=== PATIENT | female | born 1970 | race American Indian/Alaskan Native ===

== ENCOUNTER 2016-12-07 14:12 | Emergency (ER) | payer MEDICARE ==
[2016-12-07 14:48] VITALS: BP 136/93
[2016-12-07 15:22] LABS: Hemoglobin 14.3 gm/dl (10.1-14.3); Mean Corpuscular HGB Conc 32 % (30-34); Mean Corpuscular Hemoglobin 28 pg (28-32); Mean Corpuscular Volume 87 fl (79-97); Platelet Count 406 K/mm3 (140-440); Red Blood Count 5.04 M/mm3 (3.65-5.03); Red Cell Distribution Width 14.3 % (13.2-15.2); White Blood Count 14.5 K/mm3 (4.5-11.0)
[2016-12-07 15:40] LABS: Anion Gap 22 mmol/L; BUN/Creatinine Ratio 21.66; Blood Urea Nitrogen 13 mg/dL (7-17); Calcium 9.4 mg/dL (8.4-10.2); Carbon Dioxide 23 mmol/L (22-30); Chloride 100.4 mmol/L (98-107); Glucose 135 mg/dL (65-100); Potassium 4.3 mmol/L (3.6-5.0); Sodium 141 mmol/L (137-145)
[2016-12-07 16:41] LABS: Basophils % (Manual) 0 % (0.0-1.8); Blastocytes % (Manual) 0 %; Eosinophils % (Manual) 0 % (0.0-4.3); Total Cells Counted Percent 0
[2016-12-07 16:42] LABS: Diff Status Complete; Ovalocytes Few; Platelet Estimate Consistent w Auto
--- NOTE | 2016-12-09 01:13 | ED Elopement Review ---
ED Pt Elopement review - Results review Lab results: Laboratory Tests 12/07/16 12/07/16 12/07/16 15:04 15:04 17:28 WBC 14.5 H RBC 5.04 H Hgb 14.3 Hct 44.0 H MCV 87 MCH 28 MCHC 32 RDW 14.3 Plt Count 406 Add Manual Diff Complete Total Counted 100 Seg Neutrophils % Pocket Maker Seg Neuts % (Manual) 94.0 H Band Neutrophils % 0 Lymphocytes % (Manual) 6.0 L Reactive Lymphs % (Man) 0 Monocytes % (Manual) 0 Eosinophils % (Manual) 0 Basophils % (Manual) 0 Metamyelocytes % 0 Myelocytes % 0 Promyelocytes % 0 Blast Cells % 0 Nucleated RBC % Not Reportable Seg Neutrophils # Man 13.6 H Band Neutrophils # 0.0 Lymphocytes # (Manual) 0.9 L Abs React Lymphs (Man) 0.0 Monocytes # (Manual) 0.0 Eosinophils # (Manual) 0.0 Basophils # (Manual) 0.0 Metamyelocytes # 0.0 Myelocytes # 0.0 Promyelocytes # 0.0 Blast Cells # 0.0 WBC Morphology Not Reportable Hypersegmented Neuts Not Reportable Hyposegmented Neuts Not Reportable Hypogranular Neuts Not Reportable Smudge Cells Not Reportable Toxic Granulation Not Reportable Toxic Vacuolation Not Reportable Dohle Bodies Not Reportable Pelger-Huet Anomaly Not Reportable Nabil Rods Not Reportable Platelet Estimate Consistent w auto Clumped Platelets Not Reportable Plt Clumps, EDTA Not Reportable Large Platelets Not Reportable Giant Platelets Not Reportable Platelet Satelliting Not Reportable Plt Morphology Comment Not Reportable RBC Morphology Not Reportable Dimorphic RBCs Not Reportable Polychromasia Not Reportable Hypochromasia Not Reportable Poikilocytosis Not Reportable Anisocytosis Not Reportable Microcytosis Not Reportable Macrocytosis Not Reportable Spherocytes Not Reportable Pappenheimer Bodies Not Reportable Sickle Cells Not Reportable Target Cells Not Reportable Tear Drop Cells Not Reportable Ovalocytes Few Helmet Cells Not Reportable Cavazos-Boring Bodies Not Reportable [place] Rings Not Reportable [place] Cells Not Reportable Bite Cells Not Reportable Crenated Cell Not Reportable Elliptocytes Not Reportable Acanthocytes (Spur) Not Reportable Rouleaux Not Reportable Hemoglobin C Crystals Not Reportable Schistocytes Not Reportable Malaria parasites Not Reportable Barry Bodies Not Reportable Hem Pathologist Commnt No Carbon Dioxide 23 BUN 13 Creatinine 0.6 L Estimated GFR > 60 BUN/Creatinine Ratio 21.66 Glucose 135 H Calcium 9.4 Troponin T < 0.010 < 0.010 - Call Back decision Pt Call Back Decision: Pt to F/U with PMD
== END 2016-12-08 00:05 | disposition left against medical advice (07) ==
LOC: ED 14:12
DX: M25.511 Pain in right shoulder (principal); M54.2 Cervicalgia; R51 Headache; F17.200 Nicotine dependence, unspecified, uncomplicated; Z88.8 Allergy status to other drugs, medicaments and biological substances; Z53.21 Procedure and treatment not carried out due to patient leaving prior to being seen by health care provider
CPT/HCPCS: 36415; 80048; 84484; 85007; 85025; 93005; 93010

== ENCOUNTER 2017-10-03 17:57 | Emergency (ER) | payer MEDICARE ==
[2017-10-03] MEDS ORDERED: ASPIRIN PO ONE (18:12)
[2017-10-03 19:06] LABS: Basophils # (Auto) 0.1 K/mm3 (0.0-0.1); Basophils % (Auto) 0.8 % (0.0-1.8); Eosinophils # (Auto) 0.2 K/mm3 (0.0-0.4); Eosinophils % (Auto) 2.1 % (0.0-4.3); Hematocrit 39.8 % (30.3-42.9); Hemoglobin 13.2 gm/dl (10.1-14.3); Lymphocytes # (Auto) 3.2 K/mm3 (1.2-5.4); Lymphocytes % (Auto) 34.5 % (13.4-35.0); Mean Corpuscular HGB Conc 33 % (30-34); Mean Corpuscular Hemoglobin 29 pg (28-32); Mean Corpuscular Volume 87 fl (79-97); Monocytes # (Auto) 0.7 K/mm3 (0.0-0.8); Platelet Count 318 K/mm3 (140-440); Red Blood Count 4.58 M/mm3 (3.65-5.03)
[2017-10-03 19:37] LABS: BUN/Creatinine Ratio 18; Blood Urea Nitrogen 11 mg/dL (7-17); Calcium 9.6 mg/dL (8.4-10.2); Hemolysis Index 20
--- NOTE | 2017-10-03 23:36 | XRay Report ---
FINAL REPORT PROCEDURE: XR CHEST ROUTINE 2V TECHNIQUE: PA and lateral chest radiographs were obtained. CPT 45192 HISTORY: chest pain COMPARISON: No prior studies are available for comparison. FINDINGS: Heart: Normal. Mediastinum/Vessels: Normal. Lungs/Pleural space: Normal. Bony thorax: No acute osseous abnormality. Other: IMPRESSION: Normal examination.
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
[2017-10-04] MEDS ORDERED: ATIVAN PO ONE (01:02)
[2017-10-04 01:26] LABS: Bacteria,Urine 1+ /HPF (Negative); Bilirubin,Urine NEG (Negative); Blood,Urine SM (Negative); Color,Urine Yellow (Yellow); Mucus,Urine FEW /HPF; Protein,Urine <15 mg/dL mg/dL (Negative); Urobilinogen,Urine < 2.0 mg/dL (<2.0)
[2017-10-04 01:39] VITALS: BP 142/74
== END 2017-10-04 01:30 | disposition home or self-care (01) ==
LOC: ED 17:57
DX: F41.1 Generalized anxiety disorder (principal); R07.89 Other chest pain; I10 Essential (primary) hypertension; M19.90 Unspecified osteoarthritis, unspecified site; J44.9 Chronic obstructive pulmonary disease, unspecified; J45.909 Unspecified asthma, uncomplicated; F17.200 Nicotine dependence, unspecified, uncomplicated; Z90.49 Acquired absence of other specified parts of digestive tract
CPT/HCPCS: 36415; 71046; 80048; 81001; 84484; 85025; 93005; 93010; 99285

== ENCOUNTER 2018-01-12 20:31 | Emergency (ER) | payer MEDICARE ==
[2018-01-12] MEDS ORDERED: ASPIRIN PO ONE (21:08)
[2018-01-12 21:50] LABS: Basophils % (Auto) 0.2 % (0.0-1.8); Eosinophils # (Auto) 0.2 K/mm3 (0.0-0.4); Eosinophils % (Auto) 1.8 % (0.0-4.3); Hematocrit 39.8 % (30.3-42.9); Hemoglobin 12.7 gm/dl (10.1-14.3); Lymphocytes # (Auto) 2.5 K/mm3 (1.2-5.4); Lymphocytes % (Auto) 20.7 % (13.4-35.0); Mean Corpuscular HGB Conc 32 % (30-34); Mean Corpuscular Hemoglobin 28 pg (28-32); Mean Corpuscular Volume 87 fl (79-97); Monocytes # (Auto) 0.9 K/mm3 (0.0-0.8); Monocytes % (Auto) 7.3 % (0.0-7.3); Platelet Count 327 K/mm3 (140-440); Red Blood Count 4.57 M/mm3 (3.65-5.03); Red Cell Distribution Width 14.5 % (13.2-15.2)
[2018-01-12 22:06] LABS: BUN/Creatinine Ratio 4; Blood Urea Nitrogen 3 mg/dL (7-17); Calcium 9.4 mg/dL (8.4-10.2); Hemolysis Index 1
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
[2018-01-13] MEDS ORDERED: FLEXERIL PO ONE (09:40)
[2018-01-13] MEDS ORDERED: ATIVAN PO ONE (09:40)
[2018-01-13 11:56] VITALS: BP 112/64
== END 2018-01-13 11:56 | disposition home or self-care (01) ==
LOC: ED 20:31
DX: F41.9 Anxiety disorder, unspecified (principal); F31.71 Bipolar disorder, in partial remission, most recent episode hypomanic; M54.5 Low back pain; G89.29 Other chronic pain; I10 Essential (primary) hypertension; M19.90 Unspecified osteoarthritis, unspecified site; J44.9 Chronic obstructive pulmonary disease, unspecified; M79.7 Fibromyalgia; F17.200 Nicotine dependence, unspecified, uncomplicated; Z90.49 Acquired absence of other specified parts of digestive tract; Z90.12 Acquired absence of left breast and nipple; Z88.8 Allergy status to other drugs, medicaments and biological substances
CPT/HCPCS: 36415; 80048; 84484; 85025; 93005; 93010; 99284

== ENCOUNTER 2018-07-31 23:29 | Emergency (ER) | payer MEDICARE ==
[2018-08-01] MEDS ORDERED: NACL 0.9% 500 ML 500 ML IV ONE (01:38)
--- NOTE | 2018-08-01 01:39 | Emergency Department Report ---
ED General Adult HPI - General Chief complaint: Dyspnea/Respdistress Stated complaint: SOB SWOLLEN ANKLE PAIN Time Seen by Provider: 08/01/18 01:13 Source: patient, RN notes reviewed, old records reviewed Mode of arrival: Ambulatory Limitations: No Limitations - History of Present Illness Initial comments: This is a 48-year-old female. The patient has a past medical history of major depressive disorder, fibromyalgia, asthma, hypertension, severe chronic back pain, negative nuclear stress test in 2017, multiple back fusions surgeries. Patient recently had spinal surgery at [facility], by Dr. Dylan Braswell. She apparently is now in a back brace, and reports a transabdominal approach, and posterior approach. I do not know what specific surgery she had. However, she is receiving outpatient physical therapy and reports that she is feeling well. She presents to the emergency room today with multiple complaints. Her first complaint is nontraumatic bilateral ankle swelling and slight discoloration. This is present for 1 week. It is constant, and does not radiate anywhere. She reports that there is mild achy discomfort in the bilateral ankles, right greater than left. However there is no calf pain, and there is no Swelling. The patient makes no complaint of shortness of breath to me. The patient endorses a secondary complaint of difficulty with urination. She also endorses dysuria. She reports that she urinated earlier on today, and felt like "I couldn't get all the urine out." She reports no constipation. She reports that she brought these complaints to the attention of her neurosurgeon, spine surgeon, who offered to refer her to an outpatient urologist. She has declined to follow-up as far. She also complains of suprapubic swelling, and discomfort, and states "I think I have a sebaceous cyst." However, she recently had a transabdominal surgical approach for her back surgery. The wound appears to be healing well, and she is doing physical therapy, using a back brace. -: Gradual Location: abdomen, left, right, lower extremity Radiation: non-radiation Severity scale (0 -10): 6 Consistency: constant Improves with: other Worsens with: other - Related Data Home Medications Medication Instructions Recorded Confirmed Last Taken Doxepin [SINEquan] 75 mg PO QHS 11/17/13 04/17/16 11/16/13 21:00 Oxycodone HCl [Oxycodone HCl ER] 30 mg PO BID 04/17/16 04/17/16 Unknown Oxycodone HCl/Acetaminophen 1 each PO Q6HR PRN 04/17/16 04/17/16 Unknown [Percocet 10/325 mg] Ranitidine HCl [Zantac 150 MG TAB] 150 mg PO BID 04/17/16 04/17/16 Unknown Sertraline [Zoloft] 100 mg PO QDAY 04/17/16 04/17/16 Unknown Previous Rx's Medication Instructions Recorded Last Taken Type ALPRAZolam [Xanax TAB] 0.25 mg PO BID PRN #10 tab 10/04/17 Unknown Rx Sulfamethoxazole/Trimethoprim 1 each PO BID #14 tablet 01/13/18 Unknown Rx [Bactrim DS TAB] clonazePAM [Clonazepam] 0.5 mg PO BID #14 tablet 01/13/18 Unknown Rx Ciprofloxacin HCl [Ciprofloxacin 500 mg PO BID 3 Days #6 tablet 04/24/18 Unknown Rx TAB] Doxycycline [Vibramycin] 100 mg PO Q12HR #10 capsule 08/01/18 Unknown Rx Allergies Allergy/AdvReac Type Severity Reaction Status Date / Time aripiprazole [From Abilify] AdvReac Unknown Verified 07/31/18 23:44 pregabalin [From Lyrica] AdvReac Hives Verified 12/07/16 14:53 ED Review of Systems ROS: Stated complaint: SOB SWOLLEN ANKLE PAIN Other details as noted in HPI Constitutional: denies: malaise Eyes: denies: vision change ENT: denies: epistaxis Respiratory: denies: cough, shortness of breath (denies shortness of breath to this provider) Cardiovascular: denies: chest pain Gastrointestinal: abdominal pain Genitourinary: other (urinary hesitancy) Musculoskeletal: arthralgia, myalgia, other (lower extremity swelling) Skin: denies: lesions Neurological: denies: weakness Psychiatric: anxiety ED Past Medical Hx - Past Medical History Previous Medical History?: Yes Hx Hypertension: Yes Hx Arthritis: Yes Hx Psychiatric Treatment: Yes (Anxiety) Hx Asthma: Yes Hx COPD: Yes Additional medical history: sciatica-firbramyalgia. depression. MRSA - Surgical History Past Surgical History?: Yes Hx Appendectomy: Yes Hx Breast Surgery: Yes (duct from left breast removed) Additional Surgical History: hysterectomy. bilateral carpal tunnel release. spinal fusion - Social History Smoking Status: Current Every Day Smoker Substance Use Type: None - Medications Home Medications: Home Medications Medication Instructions Recorded Confirmed Last Taken Type Doxepin [SINEquan] 75 mg PO QHS 11/17/13 04/17/16 11/16/13 21:00 History Oxycodone HCl [Oxycodone HCl ER] 30 mg PO BID 04/17/16 04/17/16 Unknown History Oxycodone HCl/Acetaminophen 1 each PO Q6HR PRN 04/17/16 04/17/16 Unknown History [Percocet 10/325 mg] Ranitidine HCl [Zantac 150 MG TAB] 150 mg PO BID 04/17/16 04/17/16 Unknown History Sertraline [Zoloft] 100 mg PO QDAY 04/17/16 04/17/16 Unknown History ALPRAZolam [Xanax TAB] 0.25 mg PO BID PRN #10 tab 10/04/17 Unknown Rx Sulfamethoxazole/Trimethoprim 1 each PO BID #14 tablet 01/13/18 Unknown Rx [Bactrim DS TAB] clonazePAM [Clonazepam] 0.5 mg PO BID #14 tablet 01/13/18 Unknown Rx Ciprofloxacin HCl [Ciprofloxacin 500 mg PO BID 3 Days #6 tablet 04/24/18 Unknown Rx TAB] Doxycycline [Vibramycin] 100 mg PO Q12HR #10 capsule 08/01/18 Unknown Rx ED Physical Exam - General Limitations: No Limitations General appearance: alert, in no apparent distress - Head Head exam: Present: atraumatic, normocephalic - Eye Eye exam: Present: normal appearance, EOMI. Absent: nystagmus - ENT ENT exam: Present: normal exam, normal orophraynx, mucous membranes moist, normal external ear exam - Neck Neck exam: Present: normal inspection, full ROM. Absent: tenderness, meningismus - Respiratory Respiratory exam: Present: normal lung sounds bilaterally. Absent: respiratory distress - Cardiovascular Cardiovascular Exam: Present: regular rate, normal rhythm, normal heart sounds. Absent: bradycardia, tachycardia, irregular rhythm, systolic murmur, diastolic murmur, rubs, gallop - GI/Abdominal GI/Abdominal exam: Present: soft, other (lower abdominal surgical scar noted, healing well, with no redness, pus or streaking. Chaperoned by ER radiation control specialist Radha Sofia). Absent: distended, tenderness, guarding, rebound, rigid, pulsatile mass - Extremities Exam Extremities exam: Present: normal inspection, full ROM, pedal edema, other (2+ pulses noted in the bilateral upper, lower extremities. Compartments soft. No long bony tenderness. The pelvis is stable.). Absent: calf tenderness - Back Exam Back exam: Present: normal inspection, full ROM, other (midline surgical scar is noted, with no redness, pus or streaking, healing well, no significant tenderness). Absent: tenderness, CVA tenderness (R), paraspinal tenderness, vertebral tenderness - Neurological Exam Neurological exam: Present: alert, oriented X3, CN II-XII intact, other (Extraocular movements intact. Tongue midline. No facial droop. Facial sensation intact to light touch in the V1, V2, V3 distribution bilaterally. 5 and 5 strength in 4 extremities.. Sensation is intact to light touch in 4 extremities.). Absent: motor sensory deficit - Psychiatric Psychiatric exam: Present: normal affect, normal mood - Skin Skin exam: Present: warm, dry, intact, normal color. Absent: rash ED Course Vital Signs 07/31/18 07/31/18 08/01/18 23:37 23:43 01:06 Temperature 98.5 F 98.5 F Pulse Rate 90 90 Respiratory 16 18 18 Rate Blood Pressure 128/62 Blood Pressure 128/62 [Right] O2 Sat by Pulse 97 97 98 Oximetry 08/01/18 08/01/18 01:24 04:22 Temperature Pulse Rate 87 77 Respiratory 17 19 Rate Blood Pressure Blood Pressure 138/71 132/64 [Right] O2 Sat by Pulse 99 98 Oximetry - Reevaluation(s) Reevaluation #1: 08/01/18 02:02 Differential diagnosis, including not limited to: Dependent edema, DVT, Rosie dysfunction, urinary tract infection, postoperative surgical complication, pulmonary embolus Assessment and plan: 48-year-old female with multiple complaints subacutely postoperatively. The patient is afebrile, with reassuring vital signs. She has a benign and essentially unremarkable physical examination. Complaint #1; lower extremity swelling. She reports that her outpatient neurosurgeon has also evaluated this. Not tachycardic, not hypoxic. Negative Homans sign, negative palpable cord. Highly doubt DVT. Patient presented after the vascular lab has closed, so we will order outpatient duplex, DVT study. Complaint #2: Urinary hesitancy. We will obtain urinalysis. Complaint #3: Lower abdominal pressure, discomfort. We will obtain CT scan of the abdomen and pelvis. We will reassess once her data points have resulted. Reevaluation #2: 08/01/18 05:25 Vital signs have remained stable in the emergency room [address] scan of abdomen and pelvis negative for acute disease. Patient walking around the emergency department without difficulty. Urinalysis not consistent with urinary tract infection. CT scan the chest is negative for pulmonary embolus. Dental pneumonia is suggested. Based off of the history and physical, I do not suspect pneumonia at this time clinically. However, given her recent reports of multiple surgeries, we will cover empirically with antibiotics. Patient medically suitable at this point in time to follow up as an outpatient. ED Medical Decision Making - Lab Data Result diagrams: 08/01/18 01:39 08/01/18 01:39 Vital Signs 07/31/18 07/31/18 08/01/18 23:37 23:43 01:24 Temperature 98.5 F 98.5 F Pulse Rate 90 90 87 Respiratory 16 18 17 Rate Blood Pressure 128/62 Blood Pressure 128/62 138/71 [Right] O2 Sat by Pulse 97 97 99 Oximetry - EKG Data -: EKG Interpreted by Pa EKG shows normal: sinus rhythm Rate: normal - EKG Data 08/01/18 05:24 Sinus, 84 bpm, normal axis, normal intervals, atrial enlargement, poor wave progression, low voltage lateral leads, abnormal EKG, not consistent with ST elevation myocardial infarction, appears unchanged from prior EKG from 04/24/2018. - Radiology Data Radiology results: report reviewed, image reviewed Print Report Referring Physician: WILBER TALBERT Patient Name: VERONICA CONRAD Date of : 1970 Sex: Female Report Date: 2018-08-01 Report Status: Finalized Findings [facility] [address] [place] [address] Cat Scan Report Signed Patient: VERONICA CONRAD MR#: [id number] : [birth year] Acct:[id number] Age/Sex: 48 / F ADM Date: 07/31/18 Loc: ED Attending Dr: Ordering Physician: WILBER TALBERT MD Date of Service: 08/01/18 Procedure(s): CT angio chest Accession Number(s): [id number] cc: WILBER TALBERT MD PROCEDURE: CT ANGIO CHEST, CT ABDOMEN PELVIS W CON TECHNIQUE: CT imaging is obtained through the chest and pulmonary angiographic phase and through the abdomen and pelvis in arterial and delayed phases following intravenous administration of contrast. Transaxial, coronal and sagittal reformations with maximal intensity projection are provided. HISTORY: lower ext swelling, recent spine surgery COMPARISONS: Chest radiograph of the same date and 04/24/2018 FINDINGS: Chest: Normal caliber main pulmonary artery. Well opacified pulmonary arterial tree. No pulmonary embolism. No pericardial effusion. Mediastinal calcifications are consistent with sequela of old granulomatous disease. Thoracic aorta is normal in course and caliber. No periaortic fluid or stranding. No pneumothorax or effusion. Scattered areas of groundglass attenuating nodularity and airspace disease in the right and left upper lobes and superior segment of the left lower lung are most confluent in the left lower lung on axial series 2, image 58 and left upper lobe on image 40. The central airways are patent. No bronchiectasis. Abdomen/pelvis: The liver, gallbladder, pancreas, spleen and adrenal glands are unremarkable. Kidneys are normal in size, axis and position. No hydroureteronephrosis or nephrolithiasis. No stones in the urinary bladder or free fluid in the pelvis. Patient is status post hysterectomy. Pelvic phleboliths are noted. The aorta is normal in course and caliber. Normal course of the Hollow enteric organs. Normal appendix. Large colonic stool burden. No pneumoperitoneum, ascites or focal fluid collection to suggest abscess formation. No lymphadenopathy. The superficial soft tissues are remarkable for anterior abdominal wall surgical scarring. Lumbosacral fusion hardware appears intact. There is associated streak artifact. No acute or aggressive appearing skeletal findings. IMPRESSION: No pulmonary embolism. Areas of nodular airspace disease in both upper lungs in the superior segment of the left lower lobe are most suggestive of infection. No acute findings in the abdomen or pelvis. This document is electronically signed by Wilber Haywood MD., August 01 2018 04:46:16 AM ET Transcribed By: MB Dictated By: WILBER HAYWOOD MD Electronically Authenticated By: WILBER HAYWOOD MD Signed Date/Time: 08/01/18 0448 DD/ 0138 TD/TT: 08/01/18 0411 Print Report Referring Physician: WILBER TALBERT Patient Name: VERONICA CONRAD Date of : 1970 Sex: Female Report Date: 2018-08-01 Report Status: Finalized Findings [facility] [address] [place] [address] Cat Scan Report Signed Patient: VERONICA CONRAD MR#: [id number] : 1970 Acct:[id number] Age/Sex: 48 / F ADM Date: 07/31/18 Loc: ED Attending Dr: Ordering Physician: WILBER TALBERT MD Date of Service: 08/01/18 Procedure(s): CT abdomen pelvis w con Accession Number(s): [id number] cc: WILBER TALBERT MD PROCEDURE: CT ANGIO CHEST, CT ABDOMEN PELVIS W CON TECHNIQUE: CT imaging is obtained through the chest and pulmonary angiographic phase and through the abdomen and pelvis in arterial and delayed phases following intravenous administration of contrast. Transaxial, coronal and sagittal reformations with maximal intensity projection are provided. HISTORY: lower ext swelling, recent spine surgery COMPARISONS: Chest radiograph of the same date and 04/24/2018 FINDINGS: Chest: Normal caliber main pulmonary artery. Well opacified pulmonary arterial tree. No pulmonary embolism. No pericardial effusion. Mediastinal calcifications are consistent with sequela of old granulomatous disease. Thoracic aorta is normal in course and caliber. No periaortic fluid or stranding. No pneumothorax or effusion. Scattered areas of groundglass attenuating nodularity and airspace disease in the right and left upper lobes and superior segment of the left lower lung are most confluent in the left lower lung on axial series 2, image 58 and left upper lobe on image 40. The central airways are patent. No bronchiectasis. Abdomen/pelvis: The liver, gallbladder, pancreas, spleen and adrenal glands are unremarkable. Kidneys are normal in size, axis and position. No hydroureteronephrosis or nephrolithiasis. No stones in the urinary bladder or free fluid in the pelvis. Patient is status post hysterectomy. Pelvic phleboliths are noted. The aorta is normal in course and caliber. Normal course of the Hollow enteric organs. Normal appendix. Large colonic stool burden. No pneumoperitoneum, ascites or focal fluid collection to suggest abscess formation. No lymphadenopathy. The superficial soft tissues are remarkable for anterior abdominal wall surgical scarring. Lumbosacral fusion hardware appears intact. There is associated streak artifact. No acute or aggressive appearing skeletal findings. IMPRESSION: No pulmonary embolism. Areas of nodular airspace disease in both upper lungs in the superior segment of the left lower lobe are most suggestive of infection. No acute findings in the abdomen or pelvis. This document is electronically signed by Wilber Haywood MD., August 01 2018 04:46:16 AM ET Transcribed By: TRISTAN Dictated By: WILBER HAYWOOD MD Electronically Authenticated By: WILBER HAYWOOD MD Signed Date/Time: 08/01/18 0448 DD/ 0138 TD/TT: 08/01/18 0411 Critical care attestation.: If time is entered above; I have spent that time in minutes in the direct care of this critically ill patient, excluding procedure time. ED Disposition Clinical Impression: Urinary hesitancy, Swelling of lower extremity, Abdominal wall swelling Disposition: DC-01 TO HOME OR SELFCARE Is pt being admited?: No Does the pt Need Aspirin: No Condition: Stable Additional Instructions: Continue outpatient medications. Follow-up with her spine surgeon as scheduled. Follow up with the primary care doctor within the next month. Follow up with a urology specialist if patient continues to have urinary difficulty within the next month. please call [phone], listen for the prompts and select option 1 to speak to our staff, Available Saturday through Saturday, 7 am to 5 pm PM to assist you. Make certain to bring the ultrasound requisition form with you. Please return to the ER right away with chest pain, shortness of breath, passing out, lightheadedness, shortness of breath, new, worsening or different symptoms. CT scan of the chest suggested possible pneumonia, therefore, take the antibiotics as directed. Do not take metformin for the next 48 hours. Referrals: [facility] [Provider Group] - as needed [facility] [Provider Group] - as needed
--- NOTE | 2018-08-01 02:05 | XRay Report ---
PROCEDURE: XR CHEST 1V AP TECHNIQUE: Chest radiograph single view. HISTORY: Chest Pain COMPARISONS: None . FINDINGS: Heart: Normal. Mediastinum/Vessels: There are calcified nonenlarged mediastinal and left hilar lymph nodes.. Lungs/Pleural space: The lungs are expanded. There are no infiltrates, effusions or pneumothoraces.. Bony thorax: No acute osseous abnormality. Life support devices: None. IMPRESSION: The heart size is normal.. The lungs are expanded. There are no infiltrates, effusions or pneumothoraces.. This document is electronically signed by Can Rice MD., August 01 2018 02:03:04 AM ET
[2018-08-01 02:08] LABS: Basophils % (Auto) 0.5 % (0.0-1.8); Eosinophils # (Auto) 0.1 K/mm3 (0.0-0.4); Eosinophils % (Auto) 1.6 % (0.0-4.3); Hematocrit 34.7 % (30.3-42.9); Hemoglobin 11.2 gm/dl (10.1-14.3); INR 0.96 (0.87-1.13); Lymphocytes % (Auto) 24.6 % (13.4-35.0); Mean Corpuscular HGB Conc 32 % (30-34); Mean Corpuscular Volume 89 fl (79-97); Monocytes # (Auto) 0.7 K/mm3 (0.0-0.8); Partial Thromboplastin Time 28.3 Sec. (24.2-36.6); Platelet Count 364 K/mm3 (140-440); Red Blood Count 3.92 M/mm3 (3.65-5.03); Red Cell Distribution Width 16.2 % (13.2-15.2)
[2018-08-01 02:28] LABS: Alanine Aminotransferase 11 units/L (7-56); Albumin 3.8 g/dL (3.9-5)
[2018-08-01 02:30] LABS: BUN/Creatinine Ratio 14; Blood Urea Nitrogen 10 mg/dL (7-17); Calcium 8.9 mg/dL (8.4-10.2); Hemolysis Index 7
[2018-08-01 03:40] LABS: Bilirubin,Direct < 0.2 mg/dL (0-0.2)
[2018-08-01 04:16] LABS: Bilirubin,Urine NEG (Negative); Blood,Urine NEG (Negative); Color,Urine Yellow (Yellow); Protein,Urine <15 mg/dL mg/dL (Negative); Urobilinogen,Urine < 2.0 mg/dL (<2.0)
--- NOTE | 2018-08-01 04:48 | Cat Scan Report ---
PROCEDURE: CT ANGIO CHEST, CT ABDOMEN PELVIS W CON TECHNIQUE: CT imaging is obtained through the chest and pulmonary angiographic phase and through the abdomen and pelvis in arterial and delayed phases following intravenous administration of contrast. Transaxial, coronal and sagittal reformations with maximal intensity projection are provided. HISTORY: lower ext swelling, recent spine surgery COMPARISONS: Chest radiograph of the same date and 04/24/2018 FINDINGS: Chest: Normal caliber main pulmonary artery. Well opacified pulmonary arterial tree. No pulmonary embolism . No pericardial effusion. Mediastinal calcifications are consistent with sequela of old granulomato us disease. Thoracic aorta is normal in course and caliber. No periaortic fluid or stranding. No pneumothorax or effusion. Scattered areas of groundglass attenuating nodularity and airspace disea se in the right and left upper lobes and superior segment of the left lower lung are most confluent i n the left lower lung on axial series 2, image 58 and left upper lobe on image 40. The central airway s are patent. No bronchiectasis. Abdomen/pelvis: The liver, gallbladder, pancreas, spleen and adrenal glands are unremarkable. Kidneys are normal in size, axis and position. No hydroureteronephrosis or nephrolithiasis. No stones in the urinary bladder or free fluid in the pelvis. Patient is status post hysterectomy. Pelvic phle boliths are noted. The aorta is normal in course and caliber. Normal course of the Hollow enteric organs. Normal appendi x. Large colonic stool burden. No pneumoperitoneum, ascites or focal fluid collection to suggest absc ess formation. No lymphadenopathy. The superficial soft tissues are remarkable for anterior abdominal wall surgical scarring. Lumbosacra l fusion hardware appears intact. There is associated streak artifact. No acute or aggressive appeari ng skeletal findings. IMPRESSION: No pulmonary embolism. Areas of nodular airspace disease in both upper lungs in the superior segment of the left lower lobe are most suggestive of infection. No acute findings in the abdomen or pelvis. This document is electronically signed by Wilber Avila MD., August 01 2018 04:46:16 AM ET
[2018-08-01 05:45] VITALS: BP 145/93
== END 2018-08-01 05:57 | disposition home or self-care (01) ==
LOC: ED 23:29
DX: R39.11 Hesitancy of micturition (principal); M79.89 Other specified soft tissue disorders; M79.7 Fibromyalgia; J45.909 Unspecified asthma, uncomplicated; I10 Essential (primary) hypertension; M54.9 Dorsalgia, unspecified; G89.29 Other chronic pain; F17.200 Nicotine dependence, unspecified, uncomplicated; Z88.8 Allergy status to other drugs, medicaments and biological substances; Z90.49 Acquired absence of other specified parts of digestive tract; Z90.710 Acquired absence of both cervix and uterus
CPT/HCPCS: 36415; 71045; 71275; 74177; 80048; 80076; 81001; 84702; 85025; 85379; 85610; 85730; 93005; 93010; 99285; J7040; Q9967

== ENCOUNTER 2018-11-28 19:07 | Emergency (ER) | payer MEDICARE ==
[2018-11-28 20:14] LABS: Basophils % (Auto) 0.5 % (0.0-1.8); Eosinophils # (Auto) 0.1 K/mm3 (0.0-0.4); Eosinophils % (Auto) 0.9 % (0.0-4.3); Hematocrit 39.3 % (30.3-42.9); Hemoglobin 13.1 gm/dl (10.1-14.3); Lymphocytes # (Auto) 1.7 K/mm3 (1.2-5.4); Lymphocytes % (Auto) 16.4 % (13.4-35.0); Mean Corpuscular HGB Conc 33 % (30-34); Mean Corpuscular Hemoglobin 28 pg (28-32); Mean Corpuscular Volume 84 fl (79-97); Monocytes # (Auto) 0.9 K/mm3 (0.0-0.8); Platelet Count 426 K/mm3 (140-440); Red Blood Count 4.67 M/mm3 (3.65-5.03); Red Cell Distribution Width 17.1 % (13.2-15.2)
[2018-11-28 20:19] LABS: INR 1.17 (0.87-1.13)
[2018-11-28 20:20] LABS: Partial Thromboplastin Time 24.7 Sec. (24.2-36.6)
[2018-11-28 20:28] LABS: BUN/Creatinine Ratio 24; Blood Urea Nitrogen 17 mg/dL (7-17); Calcium 8.9 mg/dL (8.4-10.2); Hemolysis Index 5
[2018-11-28] MEDS ORDERED: TORADOL IM STA (23:29)
--- NOTE | 2018-11-29 00:16 | XRay Report ---
LUMBAR SPINE 3 VIEWS INDICATION: Low back pain after fall. COMPARISON: No relevant prior imaging study available. FINDINGS: VERTEBRAE: No acute fracture. Normal alignment. DISC SPACES: Posterior and interbody fusion of the lumbar spine and SI joints appears unremarkable. T here are mild to moderate discogenic degenerative changes at L3-L4. FACET JOINTS: Generalized facet hypertrophy is present. SOFT TISSUES: No acute findings. Mild aortoiliac atherosclerosis. ADDITIONAL FINDINGS: No additional significant findings. IMPRESSION: No acute findings. Signer Name: Zbigniew Anthony MD Signed: 11/29/2018 12:12 AM Workstation Name: [id number]
[2018-11-29 00:35] LABS: Bacteria,Urine 4+ /HPF (Negative); Bilirubin,Urine NEG (Negative); Blood,Urine SM (Negative); Color,Urine Yellow (Yellow); Mucus,Urine FEW /HPF; Protein,Urine <15 mg/dL mg/dL (Negative); Urobilinogen,Urine < 2.0 mg/dL (<2.0)
--- NOTE | 2018-11-29 01:51 | Emergency Department Report ---
ED Back Pain/Injury HPI - General Chief Complaint: Back Pain/Injury Stated Complaint: BACK PAIN/RIGHT FOOT NUMBNESS Time Seen by Provider: 11/28/18 22:59 Source: patient Limitations: Physical Limitation - History of Present Illness Initial Comments: 48-year-old [place] female with past medical history of chronic back pain of similar department stating in inability to get any relief for her pain as a dull throbbing pain to the lumbar region as well as pressure to the kidney area and suprapubic region Complaint: back pain -: Gradual (chronic pain. Long history of recurrent low back pain) Similar Symptoms Previously: No Place: home Radiation: none Severity: mild Quality: dull Improves With: none Worsens With: none Context: while lifting Associated Symptoms: denies: weakness, chest pain, numbness, incontinence, headaches, abdominal pain, rash, seizure, shortness of breath Treatments Prior to Arrival: cold therapy - Related Data Home Medications Medication Instructions Recorded Confirmed Last Taken Doxepin [SINEquan] 75 mg PO QHS 11/17/13 04/17/16 11/16/13 21:00 Oxycodone HCl [Oxycodone HCl ER] 30 mg PO BID 04/17/16 04/17/16 Unknown Oxycodone HCl/Acetaminophen 1 each PO Q6HR PRN 04/17/16 04/17/16 Unknown [Percocet 10/325 mg] Ranitidine HCl [Zantac 150 MG TAB] 150 mg PO BID 04/17/16 04/17/16 Unknown Sertraline [Zoloft] 100 mg PO QDAY 04/17/16 04/17/16 Unknown Previous Rx's Medication Instructions Recorded Last Taken Type ALPRAZolam [Xanax TAB] 0.25 mg PO BID PRN #10 tab 10/04/17 Unknown Rx Sulfamethoxazole/Trimethoprim 1 each PO BID #14 tablet 01/13/18 Unknown Rx [Bactrim DS TAB] clonazePAM [Clonazepam] 0.5 mg PO BID #14 tablet 01/13/18 Unknown Rx Ciprofloxacin HCl [Ciprofloxacin 500 mg PO BID 3 Days #6 tablet 04/24/18 Unknown Rx TAB] DOXYCYCLINE Hyclate [Vibramycin] 100 mg PO Q12HR #10 capsule 08/01/18 Unknown Rx Ciprofloxacin HCl [Ciprofloxacin 500 mg PO Q12HR #20 tab 07/20/19 Unknown Rx TAB] Ketorolac [Toradol] 10 mg PO Q6H PRN #15 tablet 11/29/18 Unknown Rx methOCARBAMOL [Robaxin] 750 mg PO Q8H PRN #21 tablet 11/29/18 Unknown Rx Allergies Allergy/AdvReac Type Severity Reaction Status Date / Time aripiprazole [From Abilify] AdvReac Unknown Verified 11/28/18 19:21 pregabalin [From Lyrica] AdvReac Hives Verified 11/28/18 19:21 ED Review of Systems ROS: Stated complaint: BACK PAIN/RIGHT FOOT NUMBNESS Other details as noted in HPI Comment: All other systems reviewed and negative Constitutional: denies: chills, fever Eyes: denies: eye pain, eye discharge, vision change ENT: denies: ear pain, throat pain Respiratory: denies: cough, shortness of breath, wheezing Cardiovascular: denies: chest pain, palpitations Endocrine: no symptoms reported Gastrointestinal: denies: abdominal pain, nausea, diarrhea Genitourinary: denies: urgency, dysuria, discharge Musculoskeletal: back pain. denies: joint swelling, arthralgia Skin: denies: rash, lesions Neurological: denies: headache, weakness, paresthesias Psychiatric: denies: anxiety, depression Hematological/Lymphatic: denies: easy bleeding, easy bruising ED Past Medical Hx - Past Medical History Hx Hypertension: Yes Hx Arthritis: Yes Hx Psychiatric Treatment: Yes (Anxiety, depression) Hx Asthma: Yes Hx COPD: Yes Additional medical history: sciatica-firbramyalgia. MRSA - Surgical History Past Surgical History?: Yes Hx Appendectomy: Yes Hx Breast Surgery: Yes (duct from left breast removed) Additional Surgical History: hysterectomy. bilateral carpal tunnel release. spinal fusion - Social History Smoking Status: Current Every Day Smoker Substance Use Type: Alcohol - Medications Home Medications: Home Medications Medication Instructions Recorded Confirmed Last Taken Type Doxepin [SINEquan] 75 mg PO QHS 11/17/13 04/17/16 11/16/13 21:00 History Oxycodone HCl [Oxycodone HCl ER] 30 mg PO BID 04/17/16 04/17/16 Unknown History Oxycodone HCl/Acetaminophen 1 each PO Q6HR PRN 04/17/16 04/17/16 Unknown History [Percocet 10/325 mg] Ranitidine HCl [Zantac 150 MG TAB] 150 mg PO BID 04/17/16 04/17/16 Unknown History Sertraline [Zoloft] 100 mg PO QDAY 04/17/16 04/17/16 Unknown History ALPRAZolam [Xanax TAB] 0.25 mg PO BID PRN #10 tab 10/04/17 Unknown Rx Sulfamethoxazole/Trimethoprim 1 each PO BID #14 tablet 01/13/18 Unknown Rx [Bactrim DS TAB] clonazePAM [Clonazepam] 0.5 mg PO BID #14 tablet 01/13/18 Unknown Rx Ciprofloxacin HCl [Ciprofloxacin 500 mg PO BID 3 Days #6 tablet 04/24/18 Unknown Rx TAB] DOXYCYCLINE Hyclate [Vibramycin] 100 mg PO Q12HR #10 capsule 08/01/18 Unknown Rx Ciprofloxacin HCl [Ciprofloxacin 500 mg PO Q12HR #20 tab 11/29/18 Unknown Rx TAB] Ketorolac [Toradol] 10 mg PO Q6H PRN #15 tablet 11/29/18 Unknown Rx methOCARBAMOL [Robaxin] 750 mg PO Q8H PRN #21 tablet 11/29/18 Unknown Rx ED Physical Exam - General Limitations: Physical Limitation General appearance: alert, in no apparent distress - Head Head exam: Present: atraumatic, normocephalic - Eye Eye exam: Present: normal appearance, PERRL, EOMI. Absent: conjunctival injection, periorbital swelling, periorbital tenderness Pupils: Present: normal accommodation. Absent: irregular, miosis, mydriatic - ENT ENT exam: Present: normal exam, normal orophraynx, mucous membranes moist, TM's normal bilaterally - Neck Neck exam: Present: normal inspection - Respiratory Respiratory exam: Present: normal lung sounds bilaterally. Absent: respiratory distress - Cardiovascular Cardiovascular Exam: Present: regular rate, normal rhythm. Absent: systolic murmur, diastolic murmur, rubs, gallop - GI/Abdominal GI/Abdominal exam: Present: soft, normal bowel sounds - Extremities Exam Extremities exam: Present: normal inspection - Back Exam Back exam: Present: normal inspection, tenderness, paraspinal tenderness, vertebral tenderness. Absent: full ROM, CVA tenderness (R), CVA tenderness (L), muscle spasm, rash noted - Neurological Exam Neurological exam: Present: alert, oriented X3, CN II-XII intact, normal gait - Psychiatric Psychiatric exam: Present: normal affect, normal mood. Absent: anxious, flat affect, suicidal ideation - Skin Skin exam: Present: warm, dry, intact, normal color. Absent: rash, cyanosis, diaphoretic, erythema, petechiae, pallor, ecchymosis ED Course Vital Signs 11/28/18 19:18 Temperature 100.3 F H Pulse Rate 97 H Respiratory 16 Rate Blood Pressure 128/81 O2 Sat by Pulse 100 Oximetry ED Medical Decision Making - Lab Data Result diagrams: 11/28/18 19:51 11/28/18 19:51 Critical care attestation.: If time is entered above; I have spent that time in minutes in the direct care of this critically ill patient, excluding procedure time. ED Disposition Clinical Impression: Lumbago with sciatica, right side, UTI (urinary tract infection) Disposition: - TO HOME OR SELFCARE Is pt being admited?: No Does the pt Need Aspirin: No Condition: Stable Instructions: Lumbar Radiculopathy (ED) Prescriptions: Ciprofloxacin HCl [Ciprofloxacin TAB] 500 mg PO Q12HR #20 tab methOCARBAMOL [Robaxin] 750 mg PO Q8H PRN #21 tablet PRN Reason: Spasms Ketorolac [Toradol] 10 mg PO Q6H PRN #15 tablet PRN Reason: Pain Referrals: NONA LAINEZ MD [Primary Care Provider] - 3-5 Days
[2018-11-29] MEDS ORDERED: TORADOL ONE (02:06)
[2018-11-29] MEDS ORDERED: TORADOL IV ONE (02:16)
[2018-11-29 02:18] VITALS: BP 115/64
== END 2018-11-29 02:18 | disposition home or self-care (01) ==
LOC: ED 19:07
DX: M54.41 Lumbago with sciatica, right side (principal); N39.0 Urinary tract infection, site not specified; I10 Essential (primary) hypertension; F41.9 Anxiety disorder, unspecified; F32.9 Major depressive disorder, single episode, unspecified; J44.9 Chronic obstructive pulmonary disease, unspecified; F17.200 Nicotine dependence, unspecified, uncomplicated; M79.7 Fibromyalgia; G89.29 Other chronic pain; Z88.8 Allergy status to other drugs, medicaments and biological substances; Z79.899 Other long term (current) drug therapy; Z90.49 Acquired absence of other specified parts of digestive tract; Z90.710 Acquired absence of both cervix and uterus
CPT/HCPCS: 36415; 72100; 80048; 81001; 85025; 85610; 85730; 87076; 87086; 87186; 96374; 99284; J1885

== ENCOUNTER 2018-12-09 17:24 | Inpatient (IN) | payer MEDICARE ==
[2018-12-09] MEDS ORDERED: NITRO-BID 2% TP ONE (17:51)
[2018-12-09] MEDS ORDERED: SUBLIMAZE IV ONE (17:51)
[2018-12-09] MEDS ORDERED: ASPIRIN PO ONE (17:51)
[2018-12-09] MEDS ORDERED: ZOFRAN IV ONE (17:51)
--- NOTE | 2018-12-09 17:57 | Emergency Department Report ---
HPI - General Chief Complaint: Chest Pain Time Seen by Provider: 12/09/18 17:42 - HPI HPI: Room 3 The patient is a 48-year-old female presenting with chief complaint of chest pain. The patient states for the past 4 days she's had a cholecystectomy chest pain described as tightness associated with shortness of breath and diaphoresis. Patient denies nausea or vomiting. She states when she developed body aches and a cough occasionally productive of clear sputum with specks of blood. The patient gives her pain a score of 7/10. The patient states her last stress test occurred over 5 years ago and she has never had a cardiac catheterization Location: [See above] Duration: [See above] Quality: [See above] Severity: [See above] Modifying factors: [see above] Context: [see above] Mode of transportation: [not driving] ED Past Medical Hx - Past Medical History Hx Hypertension: Yes Hx Arthritis: Yes Hx Psychiatric Treatment: Yes (Anxiety, depression) Hx Asthma: Yes Hx COPD: Yes Additional medical history: sciatica-firbramyalgia. MRSA - Surgical History Hx Appendectomy: Yes Hx Breast Surgery: Yes (duct from left breast removed) Additional Surgical History: hysterectomy. bilateral carpal tunnel release. spinal fusion - Family History Family history: no significant - Social History Smoking Status: Current Every Day Smoker (1/2 pack per day) Substance Use Type: None (denies illicit drug use), Alcohol (moderate) - Medications Home Medications: Home Medications Medication Instructions Recorded Confirmed Last Taken Type Sertraline [Zoloft] 100 mg PO BID 04/17/16 12/09/18 Unknown History clonazePAM [Clonazepam] 0.5 mg PO BID #14 tablet 01/13/18 12/09/18 Unknown Rx Oxycodone HCl [roxiCODONE] 30 mg PO Q4-6H PRN 12/09/18 12/09/18 12/09/18 History traZODone [Desyrel] 1 - 2 tab PO QHS 12/09/18 12/09/18 Unknown History ED Review of Systems ROS: Stated complaint: CHEST PAIN/ISABELLA Other details as noted in HPI Constitutional: diaphoresis Eyes: denies: eye pain ENT: denies: throat pain Respiratory: cough, shortness of breath Cardiovascular: chest pain Endocrine: no symptoms reported Gastrointestinal: denies: nausea, vomiting Musculoskeletal: denies: back pain Neurological: denies: headache Physical Exam - Physical Exam Physical Exam: GENERAL: The patient is well-developed well-nourished female lying on stretcher not appearing to be in acute distress. [] HEENT: Normocephalic. Atraumatic. Extraocular motions are intact. Patient has moist mucous membranes. NECK: Supple. Trachea midline CHEST/LUNGS: Faint occasional expiratory wheeze. There is no respiratory distress noted. HEART/CARDIOVASCULAR: Regular. There is no tachycardia. There is no gallop rub or murmur. ABDOMEN: Abdomen is soft, nontender. Patient has normal bowel sounds. There is no abdominal distention. SKIN: There is no edema. There is no diaphoresis. NEURO: The patient is awake, alert, and oriented. The patient is cooperative. The patient has normal speech MUSCULOSKELETAL: There is no evidence of acute injury. ED Medical Decision Making - Lab Data Result diagrams: 12/09/18 18:00 12/09/18 18:00 Laboratory Tests 12/09/18 12/09/18 12/09/18 18:00 18:00 18:00 WBC 9.5 RBC 3.82 Hgb 11.2 Hct 32.7 MCV 86 MCH 29 MCHC 34 RDW 15.7 H Plt Count 296 Lymph % (Auto) 16.7 [place] % (Auto) 12.6 H Eos % (Auto) 1.9 Baso % (Auto) 2.1 H Lymph # 1.6 [place] # 1.2 H Eos # 0.2 Baso # 0.2 H Seg Neutrophils % 66.7 Seg Neutrophils # 6.3 D-Dimer 468.49 H Sodium 140 Potassium 4.2 Chloride 100.6 Carbon Dioxide 26 Anion Gap 18 BUN 9 Creatinine 0.4 L Estimated GFR > 60 BUN/Creatinine Ratio 23 Glucose 91 Calcium 8.7 Total Creatine Kinase 250 H CK-MB (CK-2) 2.2 CK-MB (CK-2) Rel Index 0.8 Troponin T NT-Pro-B Natriuret Pep 12/09/18 18:00 WBC RBC Hgb Hct MCV MCH MCHC RDW Plt Count Lymph % (Auto) [place] % (Auto) Eos % (Auto) Baso % (Auto) Lymph # [place] # Eos # Baso # Seg Neutrophils % Seg Neutrophils # D-Dimer Sodium Potassium Chloride Carbon Dioxide Anion Gap BUN Creatinine Estimated GFR BUN/Creatinine Ratio Glucose Calcium Total Creatine Kinase CK-MB (CK-2) CK-MB (CK-2) Rel Index Troponin T < 0.010 NT-Pro-B Natriuret Pep 438.7 - EKG Data -: EKG Interpreted by Me EKG shows normal: sinus rhythm Rate: normal - EKG Data When compared to previous EKG there are: previous EKG unavailable Interpretation: nonspecific ST-T wave agustin (T wave inversion lead 3) - Radiology Data Radiology results: report reviewed (VQ scan), image reviewed (chest x-ray, VQ scan) interpreted by me: Chest x-ray-no focal infiltrate, no pneumothorax [facility] [address] [place] [address] Nuclear Medicine Report Signed Patient: VERONICA CONRAD MR#: [id number] : 1970 Acct:[id number] Age/Sex: 48 / F ADM Date: 12/09/18 Loc: ED Attending Dr: Ordering Physician: JEAN PIERRE RDZ MD Date of Service: 12/09/18 Procedure(s): NM lung scan perf/vent Accession Number(s): [id number] cc: JEAN PIERRE RDZ MD V/Q Scan HISTORY: chest tightness, shortness of breath. TECHNIQUE: Patient was given 4.69 mCi of technetium MAA and 7.89 mCi of xenon- 133. COMPARISON: Chest x-ray from today FINDINGS: There is a single moderately-sized defect in the posterior left lower lobe on the perfusion images which is mismatched from the ventilation images. No other abnormality identified. IMPRESSION: Given single moderately-sized mismatch defect in the left lower lobe with normal- appearing chest x-ray, study is intermediate probability for PTE by using PIOPED criteria. Signer Name: Artemio Castillo MD Signed: 12/09/2018 8:45 PM Workstation Name: [id number] Transcribed By: ADRIANNA Dictated By: Artemio Castillo MD Electronically Authenticated By: Artemio Castillo MD Signed Date/Time: 12/09/182044 DD/ 41 TD/TT: - Differential Diagnosis ACS, pericarditis, GERD, PE Critical care attestation.: If time is entered above; I have spent that time in minutes in the direct care of this critically ill patient, excluding procedure time. ED Disposition Clinical Impression: Chest pain Disposition: 09 OP ADMIT IP TO THIS HOSP Is pt being admited?: Yes Does the pt Need Aspirin: Yes Condition: Fair Instructions: Chest Pain (ED) Time of Disposition: 21:19 (hospitalist paged (Dr Hernandez))
[2018-12-09] MEDS ORDERED: XOPENEX IH ONE (17:58)
[2018-12-09] MEDS ORDERED: ATROVENT IH ONE (17:58)
[2018-12-09 18:25] LABS: Basophils # (Auto) 0.2 K/mm3 (0.0-0.1); Basophils % (Auto) 2.1 % (0.0-1.8); Eosinophils # (Auto) 0.2 K/mm3 (0.0-0.4); Eosinophils % (Auto) 1.9 % (0.0-4.3); Hematocrit 32.7 % (30.3-42.9); Hemoglobin 11.2 gm/dl (10.1-14.3); Lymphocytes # (Auto) 1.6 K/mm3 (1.2-5.4); Lymphocytes % (Auto) 16.7 % (13.4-35.0); Mean Corpuscular HGB Conc 34 % (30-34); Mean Corpuscular Volume 86 fl (79-97); Monocytes # (Auto) 1.2 K/mm3 (0.0-0.8); Monocytes % (Auto) 12.6 % (0.0-7.3); Platelet Count 296 K/mm3 (140-440); Red Blood Count 3.82 M/mm3 (3.65-5.03); Red Cell Distribution Width 15.7 % (13.2-15.2)
--- NOTE | 2018-12-09 18:25 | XRay Report ---
CHEST 1 VIEW 12/09/2018 5:59 PM INDICATION / CLINICAL INFORMATION: chest pain. COMPARISON: Chest x-ray 08/01/2018 FINDINGS: SUPPORT DEVICES: None. HEART / MEDIASTINUM: No significant abnormality. Calcified left perihilar granuloma LUNGS / PLEURA: No significant pulmonary or pleural abnormality. No pneumothorax. ADDITIONAL FINDINGS: No significant additional findings. IMPRESSION: 1. No acute findings. Signer Name: Hitesh Allison MD Signed: 12/09/2018 6:21 PM Workstation Name: [id number]
[2018-12-09 18:58] LABS: Creatine Kinase MB 2.2 ng/mL (0.0-4.0)
[2018-12-09 19:01] LABS: BUN/Creatinine Ratio 23; Blood Urea Nitrogen 9 mg/dL (7-17); Calcium 8.7 mg/dL (8.4-10.2); Hemolysis Index 79
--- NOTE | 2018-12-09 20:49 | Nuclear Medicine Report ---
V/Q Scan HISTORY: chest tightness, shortness of breath. TECHNIQUE: Patient was given 4.69 mCi of technetium MAA and 7.89 mCi of xenon-133. COMPARISON: Chest x-ray from today FINDINGS: There is a single moderately-sized defect in the posterior left lower lobe on the perfusio n images which is mismatched from the ventilation images. No other abnormality identified. IMPRESSION: Given single moderately-sized mismatch defect in the left lower lobe with normal-appeari ng chest x-ray, study is intermediate probability for PTE by using PIOPED criteria. Signer Name: Artemio Castillo MD Signed: 12/09/2018 8:45 PM Workstation Name: [id number]
[2018-12-09] MEDS ORDERED: LOVENOX SUB-Q ONE (21:21)
[2018-12-09] MEDS ORDERED: NITROSTAT SL PRN (21:52)
[2018-12-09] MEDS ORDERED: TYLENOL PO PRN (21:53)
[2018-12-09] MEDS ORDERED: ZOFRAN IV PRN (21:53)
[2018-12-09 23:39] LABS: Hematocrit 34.2 % (30.3-42.9); Hemoglobin 11.1 gm/dl (10.1-14.3)
[2018-12-09 23:42] LABS: INR 1.03 (0.87-1.13)
[2018-12-09 23:43] LABS: Partial Thromboplastin Time 32.3 Sec. (24.2-36.6)
[2018-12-09] MEDS: HEPARIN/ 0.45% NACL-25,000 UNIT/500 ML 25,000 UNIT/500 ML BAG IV SCH (23:51)
[2018-12-10] MEDS ORDERED: DESYREL PO PRN ×2 (00:43→00:59)
[2018-12-10] MEDS: MORPHINE IV PRN ×4 (01:11→22:08)
[2018-12-10] MEDS: DESYREL PO PRN (01:11)
[2018-12-10 01:27] LABS: Creatine Kinase MB 1.7 ng/mL (0.0-4.0)
--- NOTE | 2018-12-10 05:25 | History and Physical Report ---
CHIEF COMPLAINT: Chest pain. HISTORY OF PRESENTING ILLNESS: The patient is a 48-year-old female who says she has been having intermittent chest pain that appears as tightness, going on for about 4 days. The patient said the pain was associated with shortness of breath and diaphoresis, but there is no history of nausea or vomiting and no history of cough. The patient denies history of nausea and vomiting and admitted to having generalized body pain and cough, occasionally productive of sputum stained with some blood streaks. There is no history of fever or chills. The patient denied history of long distance travel, but admitted to having some pain in the lower extremity. PAST MEDICAL HISTORY: Pertinent for hypertension, arthritis, anxiety and depression, asthma, COPD, fibromyalgia, MRSA infection. PAST SURGICAL HISTORY: Pertinent for appendectomy, left breast surgery, bilateral carpal tunnel release surgery, spinal fusion. FAMILY HISTORY: Noncontributory. SOCIAL HISTORY: The patient smokes cigarettes daily, drinks alcohol and does not use illicit drug. MEDICATIONS: The patient is on Zoloft 100 mg by mouth twice daily, clonazepam 0.5 mg by mouth twice daily, Roxicodone 30 mg by mouth every 6 hours as needed for pain, trazodone 1-2 tablets by mouth at bedtime. ALLERGIES: THE PATIENT IS ALLERGIC TO ARIPIPRAZOLE AND PREGABALIN. REVIEW OF SYSTEMS: CONSTITUTIONAL: There is no fever, no chills, no diaphoresis. HEENT: There is no headache or sore throat. CARDIOVASCULAR SYSTEM: Chest pain is present. No orthopnea. RESPIRATORY SYSTEM: Shortness of breath is present. Cough is present. GASTROINTESTINAL SYSTEM: There is no nausea, no vomiting, no abdominal pain, diarrhea or constipation. NEUROLOGICAL SYSTEM: There is no numbness, no dizziness, no altered mental status. MUSCULOSKELETAL: Generalized body pain noted and pain in the lower extremity also noted. No joint swelling. DERMATOLOGICAL SYSTEM: There is no skin rash or itching. GENITOURINARY SYSTEM: There is no dysuria, hematuria, or flank pain. Rest of system review is normal. PHYSICAL EXAMINATION: GENERAL: At the time of exam, the patient was found to be alert, oriented x 3 and not in acute distress. VITAL SIGNS: At the initial time of presentation showed temperature of 98.3 degrees Fahrenheit, pulse of 64, respirations 18, blood pressure 122/61, O2 sat of 99-100% on oxygen. HEENT: Showed pupils to be equal, round, reactive to light and accommodation. Extraocular muscles are intact. NECK: Supple with no JVD or carotid bruit. CARDIOVASCULAR SYSTEM: Showed normal first and second heart sounds, with no gallops or murmurs. RESPIRATORY SYSTEM: Showed reduced air entry on the left side of the lungs, with no abnormal breath sounds. GASTROINTESTINAL SYSTEM: Showed abdomen to be full, soft, nontender, with no organomegaly or rigidity. NEUROLOGICAL: Shows no focal deficit. MUSCULOSKELETAL SYSTEM: Showed no joint swelling or tenderness. DERMATOLOGICAL SYSTEM: Showed no skin rash. GENITOURINARY SYSTEM: Showing no costovertebral angle tenderness. PERTINENT LABORATORY AND IMAGING STUDIES: The patient had pulmonary perfusion scan done that shows a moderately size mismatch defect in the left lower lobe with normal-appearing chest x-ray. Radiology said that the study is indeterminate probability for PE using PIOPED criteria. Also, the patient had a chest x-ray done that showed no acute findings. Lab results, the patient had CBC done with normal white count, normal hemoglobin and normal hematocrit with CBC differential showing elevated monocyte count of 12.6% and elevated basophil count of 2.1%. The patient's coagulation study shows a high D-dimer of 468 that led to perfusion lung scan being done. The patient's chemistry was unremarkable, except for elevated CPK of 250 with normal CK-MB and normal CK percentage index as well as normal troponin level. DIAGNOSES: 1. Left pulmonary embolism. 2. Chest pain. PLAN OF CARE: 1. The patient will be admitted to telemetry as inpatient. 2. The patient will have serial cardiac enzymes involving troponin, total CK, and CK-MB checked every 6 hours x 2 more levels. 3. The patient will be on IV standard heparin drip, having received subcutaneous high dose Lovenox 4. The patient will be on Tylenol 650 mg by mouth every 4 hours for fever and headache and aspirin 81 mg by mouth daily. 5. The patient will be on IV morphine 2 mg every 3 hours as needed for pain and IV Zofran 4 mg every 8 hours for nausea and vomiting. 6. The patient will be on nitro paste 0.5 inch to anterior chest wall q.i.d. 7. The patient will be started on Coumadin 5 mg by mouth daily with pharmacy to dose. 8. The patient will have bilateral Doppler ultrasound of the lower extremity to rule out DVT. 9. The patient will have PT/INR checked in the morning. 10. The patient will be on oxygen by nasal cannula. JOB# [id number] OCN/NTS ROSARIO
[2018-12-10] MEDS: NITRO-BID 2% TP SCH ×4 (06:08→18:53)
[2018-12-10 06:35] LABS: Creatine Kinase MB 1.5 ng/mL (0.0-4.0)
[2018-12-10] MEDS: BABY ASPIRIN PO SCH (09:59)
[2018-12-10] MEDS: ZOLOFT PO SCH ×2 (09:59→22:08)
[2018-12-10] MEDS: COLACE PO SCH ×2 (09:59→22:08)
[2018-12-10] MEDS: LOPRESSOR PO SCH (10:00)
[2018-12-10] MEDS ORDERED: NON-FORMULARY (Oxycodone Hcl [Roxicodone] 30 MG) PO PRN (11:37)
[2018-12-10] MEDS: ROXICODONE PO PRN ×2 (12:29→18:47)
--- NOTE | 2018-12-10 16:19 | Vascular Lab Report ---
DUPLEX DOPPLER LOWER EXTREMITY VEINS, BILATERAL INDICATION: PULMONARY EMBOLISM. Bilateral lower extremity pain and swelling. TECHNIQUE: Duplex doppler imaging was performed through the veins of both lower extremities using ve nous compression and other maneuvers. COMPARISON: No relevant prior imaging study available. FINDINGS: Right Common femoral vein: Negative. Right Superficial femoral vein: Negative. Right Popliteal vein: Negative. Right Calf veins: Negative. Left Common femoral vein: Negative. Left Superficial femoral vein: Negative. Left Popliteal vein: Negative. Left Calf veins: Negative. Additional findings: None.. IMPRESSION: No sonographic evidence for DVT in either lower extremity. Signer Name: Diego Latham Jr, MD Signed: 12/10/2018 4:14 PM Workstation Name: [id number]
[2018-12-10] MEDS ORDERED: COUMADIN PO SCH (17:00)
[2018-12-10] MEDS: COUMADIN PO SCH (17:23)
--- NOTE | 2018-12-10 17:29 | Progress Note ---
Assessment and Plan Assessment and plan: Patient is a 48 yo woman with a history of tobacco dependency, hypertension, anxiety, OA, asthma, fibromyalgia, chronic pain syndrome due to spinal fusion surgery and she takes Oxycodone 6 times a day under the care of pain specialist Dr. Santiago Marshall (according to [place] turning and beading machine operator aware she received #180 oxycodone and #[address] Marshall on 12/04/2018) who presents with chest pains, myalgia, sore throat, subjective fevers and cough. pCXR was unremarkable for pneumonia. She had elevated d-dimer and CTA chest ordered but machine is broken so v/q scan performed and showed Intermediate probability for PE, so she was admitted for suspected LLL acute PE and started on IV heparin drip. -Suspected Acute LLE PE: re-ordered CTA chest to confirm diagnosis, continue IV heparin with Coumadin bridge tonight, Bilateral venous leg dopplers negative -CPS (chronic pain sydrome): continue home narcotics, watch for sedation, add neurochecks -Acute viral bronchitis: supportive care -Tobacco dependency: grief counselor on stopping, offered nicotine patch. DO NOT give narcotics or BZD at discharge Disposition: continue inpatient care, need CTA chest for discharge planning. If negative, she can be discharge without anticoagulation History Interval history: Patient was seen and examined. Follow-up on current diagnosis of PE. No overnight events reported to me. Patient denies any chest pain, shortness breath, nausea/vomiting or severe headaches. Imaging, nursing note, chart, labs and old chart reviewed. Discussed with patient. Hospitalist Physical - Physical exam Narrative exam: Gen: WDWN, NAD, Awake, Alert, Orientated HEENT: NCAT, EOMI, PERRL, OP Clear Neck: supple, no adenopathy, no thyromegaly, no JVD CVS/Heart: RRR, normal S1S2, pulses present bilaterally Chest/Lungs: CTA B, Symmetrical chest expansion, good air entry bilaterally GI/Abdomen: soft, NTND, good bowel sounds, no guarding or rebound /Bladder: no suprapubic tenderness, no CVA or paraspinal tenderness Extermity/Skin: no c/c/e, no obvious rash MSK: FROM x 4 Neuro: CN 2-12 grossly intact, no new focal deficits Psych: calm - Constitutional Vitals: Temp Pulse Resp BP Pulse Ox 98.6 F 60 18 118/56 93 12/10/18 12:08 12/10/18 14:16 12/10/18 12:08 12/10/18 14:16 12/10/18 12:08 Results - Labs CBC & Chem 7: 12/09/18 22:01 12/09/18 18:00 Labs: Laboratory Last Values WBC 9.5 K/mm3 (4.5-11.0) 12/09/18 18:00 RBC 3.82 M/mm3 (3.65-5.03) 12/09/18 18:00 Hgb 11.1 gm/dl (10.1-14.3) 12/09/18 22:01 Hct 34.2 % (30.3-42.9) 12/09/18 22:01 MCV 86 fl (79-97) 12/09/18 18:00 MCH 29 pg (28-32) 12/09/18 18:00 MCHC 34 % (30-34) 12/09/18 18:00 RDW 15.7 % (13.2-15.2) H 12/09/18 18:00 Plt Count 270 K/mm3 (140-440) 12/09/18 22:01 Lymph % (Auto) 16.7 % (13.4-35.0) 12/09/18 18:00 [place] % (Auto) 12.6 % (0.0-7.3) H 12/09/18 18:00 Eos % (Auto) 1.9 % (0.0-4.3) 12/09/18 18:00 Baso % (Auto) 2.1 % (0.0-1.8) H 12/09/18 18:00 Lymph # 1.6 K/mm3 (1.2-5.4) 12/09/18 18:00 [place] # 1.2 K/mm3 (0.0-0.8) H 12/09/18 18:00 Eos # 0.2 K/mm3 (0.0-0.4) 12/09/18 18:00 Baso # 0.2 K/mm3 (0.0-0.1) H 12/09/18 18:00 Seg Neutrophils % 66.7 % (40.0-70.0) 12/09/18 18:00 Seg Neutrophils # 6.3 K/mm3 (1.8-7.7) 12/09/18 18:00 PT 13.2 Sec. (12.2-14.9) 12/09/18 22:01 INR 1.03 (0.87-1.13) 12/09/18 22:01 APTT 32.3 Sec. (24.2-36.6) 12/09/18 22:01 468.49 ng/mlDDU (0-234) H 12/09/18 18:00 Heparin Anti-Xa Level 0.68 U.I./ml (0.3-0.7) 12/10/18 13:12 Sodium 140 mmol/L (137-145) 12/09/18 18:00 Potassium 4.2 mmol/L (3.6-5.0) 12/09/18 18:00 Chloride 100.6 mmol/L (98-107) 12/09/18 18:00 Carbon Dioxide 26 mmol/L (22-30) 12/09/18 18:00 18 mmol/L 12/09/18 18:00 BUN 9 mg/dL (7-17) 12/09/18 18:00 0.4 mg/dL (0.7-1.2) L 12/09/18 18:00 Estimated GFR > 60 ml/min 12/09/18 18:00 23 % 12/09/18 18:00 Glucose 91 mg/dL (65-100) 12/09/18 18:00 Calcium 8.7 mg/dL (8.4-10.2) 12/09/18 18:00 144 units/L (30-135) H 12/10/18 05:47 CK-MB (CK-2) 1.5 ng/mL (0.0-4.0) 12/10/18 05:47 CK-MB (CK-2) Rel Index 1.0 (0-4) 12/10/18 05:47 < 0.010 ng/mL (0.00-0.029) 12/10/18 05:47 NT-Pro-B Natriuret Pep 438.7 pg/mL (0-450) 12/09/18 18:00 Active Medications - Current Medications Current Medications: Generic Name Dose Route Start Last Admin Trade Name Freq PRN Reason Stop Dose Admin Acetaminophen 650 mg 12/09/18 21:53 Tylenol PO Q4H PRN Headache Aspirin 81 mg 12/10/18 10:00 12/10/18 09:59 Baby Aspirin PO 81 mg QDAY [facility] Administration Clonazepam 0.5 mg 12/10/18 10:00 12/10/18 10:01 Klonopin PO 0.5 mg BID SANDRA Administration Docusate Sodium 100 mg 12/10/18 10:00 12/10/18 09:59 Colace PO 100 mg BID SANDRA Administration Heparin Sodium/Sodium Chloride 25,000 unit in 500 mls @ 20 mls/hr 12/09/18 22:00 12/10/18 14:20 Heparin/ 0.45% Nacl-25,000 Unit/500 Ml IV 950 units/hr TITR SANDRA 19 mls/hr Titration Protocol 1,000 UNITS/HR Metoprolol Tartrate 25 mg 12/10/18 10:00 12/10/18 10:00 Lopressor PO 25 mg DAILY [facility] Administration Morphine Sulfate 2 mg 12/09/18 21:53 12/10/18 15:26 Morphine IV 2 mg Q3H PRN Administration Pain, Moderate (4-6) Nitroglycerin 0.5 inch 12/10/18 06:00 12/10/18 14:16 Nitro-Bid 2% TP Not Given QIDNTG [facility] Protocol Nitroglycerin 0.4 mg 12/09/18 21:52 Nitrostat SL .Q5MIN PRN Chest Pain Ondansetron HCl 4 mg 12/09/18 21:53 Zofran IV Q8H PRN Nausea And Vomiting Oxycodone HCl 30 mg 12/10/18 12:00 12/10/18 12:29 Roxicodone PO 30 mg Q4H PRN Administration Pain , Severe (7-10) Sertraline HCl 100 mg 12/10/18 10:00 12/10/18 09:59 Zoloft PO 100 mg BID [facility] Administration Trazodone HCl 50 mg 12/10/18 00:56 12/10/18 01:11 Desyrel PO 50 mg QHS PRN Administration Sleep Trazodone HCl 100 mg 12/10/18 00:59 12/10/18 01:11 Desyrel PO 100 mg QHS PRN Administration Sleep Warfarin Sodium 7.5 mg 12/10/18 17:00 12/10/18 17:23 Coumadin PO 7.5 mg DAILY@1700 SANDRA Administration
[2018-12-11] MEDS: ROXICODONE PO PRN ×3 (00:43→16:59)
[2018-12-11] MEDS: HEPARIN/ 0.45% NACL-25,000 UNIT/500 ML 25,000 UNIT/500 ML BAG IV SCH (00:43)
[2018-12-11] MEDS: DUONEB *Not for PRN Use IH SCH ×4 (02:32→21:20)
[2018-12-11] MEDS: NITRO-BID 2% TP SCH ×2 (06:04→09:36)
[2018-12-11 06:05] LABS: Hematocrit 34.3 % (30.3-42.9); Hemoglobin 11.1 gm/dl (10.1-14.3)
[2018-12-11 06:07] LABS: INR 1.13 (0.87-1.13)
[2018-12-11] MEDS: MORPHINE IV PRN ×3 (06:36→21:07)
[2018-12-11] MEDS: BABY ASPIRIN PO SCH (09:33)
[2018-12-11] MEDS: COLACE PO SCH ×2 (09:33→21:07)
[2018-12-11] MEDS: ZOLOFT PO SCH ×2 (09:33→21:07)
[2018-12-11] MEDS: LOPRESSOR PO SCH (09:37)
--- NOTE | 2018-12-11 16:35 | Cat Scan Report ---
CTA CHEST WITH CONTRAST INDICATION : Shortness of breath. Chest pain for 4 to 5 days TECHNIQUE: Axial imaging performed through the chest, with contrast bolus timing set to maximize opa cification of the pulmonary arteries. Sagittal and coronal reformatted images. 3-plane MIP reformatte d images were obtained. All CT scans at this location are performed using CT dose reduction for ALAR A by means of automated exposure control. 100 mL of intravenous contrast administered. COMPARISON: VQ scan dated 12/09/2018 FINDINGS: Bolus: Contrast bolus timing is adequate. PTE: No filling defect is present to suggest PTE. Mediastinum: Heart and great vessels appear normal. There are multiple calcified lymph nodes in the left hilar region consistent with chronic granulomatous disease. No pathologic adenopathy. Lungs: There is mild air trapping in the upper lobes. Otherwise the lungs are clear. No evidence for consolidation, pleural effusion or pneumothorax. Bones: Degenerative changes in the spine with nothing acute. Upper abdomen: Limited imaging of the upper abdomen shows nothing acute. IMPRESSION: Negative for pulmonary embolus. Chronic granulomatous disease findings. Mild air trapping in the upper lobes suggesting mild obstructive pulmonary disease. Signer Name: Diego Latham Jr, MD Signed: 12/11/2018 4:30 PM Workstation Name: [id number]
--- NOTE | 2018-12-11 16:38 | Progress Note ---
Assessment and Plan Assessment and plan: Patient is a 48 yo woman with a history of tobacco dependency, hypertension, anxiety, OA, asthma, fibromyalgia, chronic pain syndrome due to spinal fusion surgery and she takes Oxycodone 6 times a day under the care of pain specialist Dr. Santiago Marshall (according to [place] credit product analyst aware she received #180 oxycodone and #[address] Marshall on 12/04/2018) who presents with chest pains, myalgia, sore throat, subjective fevers and cough. pCXR was unremarkable for pneumonia. She had elevated d-dimer and CTA chest ordered but machine is broken so v/q scan performed and showed Intermediate probability for PE, so she was admitted for suspected LLL acute PE and started on IV heparin drip. -Suspected Acute LLE PE: re-ordered CTA chest to confirm diagnosis, continue IV heparin with Coumadin bridge tonight, Bilateral venous leg dopplers negative -CPS (chronic pain sydrome): continue home narcotics, watch for sedation, add neurochecks -Acute viral bronchitis: supportive care -Tobacco dependency: patent counsel on stopping, offered nicotine patch. DO NOT give narcotics or BZD at discharge Disposition: continue inpatient care, need CTA chest for discharge planning. If negative, she can be discharge without anticoagulation History Interval history: Patient was seen and examined. Follow-up on current diagnosis of PE. No overnight events reported to me. Patient denies any chest pain, shortness breath, nausea/vomiting or severe headaches. Imaging, nursing note, chart, labs and old chart reviewed. Discussed with patient. Hospitalist Physical - Physical exam Narrative exam: Gen: WDWN, NAD, Awake, Alert, Orientated HEENT: NCAT, EOMI, PERRL, OP Clear Neck: supple, no adenopathy, no thyromegaly, no JVD CVS/Heart: RRR, normal S1S2, pulses present bilaterally Chest/Lungs: CTA B, Symmetrical chest expansion, good air entry bilaterally GI/Abdomen: soft, NTND, good bowel sounds, no guarding or rebound /Bladder: no suprapubic tenderness, no CVA or paraspinal tenderness Extermity/Skin: no c/c/e, no obvious rash MSK: FROM x 4 Neuro: CN 2-12 grossly intact, no new focal deficits Psych: calm - Constitutional Vitals: Temp Pulse Resp BP Pulse Ox 98.3 F 80 18 98/44 97 12/11/18 11:44 12/11/18 15:00 12/11/18 12:28 12/11/18 11:44 12/11/18 10:00 Results - Labs CBC & Chem 7: 12/11/18 05:26 12/09/18 18:00 Labs: Laboratory Last Values WBC 9.5 K/mm3 (4.5-11.0) 12/09/18 18:00 RBC 3.82 M/mm3 (3.65-5.03) 12/09/18 18:00 Hgb 11.1 gm/dl (10.1-14.3) 12/11/18 05:26 Hct 34.3 % (30.3-42.9) 12/11/18 05:26 MCV 86 fl (79-97) 12/09/18 18:00 MCH 29 pg (28-32) 12/09/18 18:00 MCHC 34 % (30-34) 12/09/18 18:00 RDW 15.7 % (13.2-15.2) H 12/09/18 18:00 Plt Count 266 K/mm3 (140-440) 12/11/18 05:26 Lymph % (Auto) 16.7 % (13.4-35.0) 12/09/18 18:00 [place] % (Auto) 12.6 % (0.0-7.3) H 12/09/18 18:00 Eos % (Auto) 1.9 % (0.0-4.3) 12/09/18 18:00 Baso % (Auto) 2.1 % (0.0-1.8) H 12/09/18 18:00 Lymph # 1.6 K/mm3 (1.2-5.4) 12/09/18 18:00 [place] # 1.2 K/mm3 (0.0-0.8) H 12/09/18 18:00 Eos # 0.2 K/mm3 (0.0-0.4) 12/09/18 18:00 Baso # 0.2 K/mm3 (0.0-0.1) H 12/09/18 18:00 Seg Neutrophils % 66.7 % (40.0-70.0) 12/09/18 18:00 Seg Neutrophils # 6.3 K/mm3 (1.8-7.7) 12/09/18 18:00 PT 14.2 Sec. (12.2-14.9) 12/11/18 05:26 INR 1.13 (0.87-1.13) 12/11/18 05:26 APTT 32.3 Sec. (24.2-36.6) 12/09/18 22:01 468.49 ng/mlDDU (0-234) H 12/09/18 18:00 Heparin Anti-Xa Level 0.59 U.I./ml (0.3-0.7) 12/11/18 13:24 Sodium 140 mmol/L (137-145) 12/09/18 18:00 Potassium 4.2 mmol/L (3.6-5.0) 12/09/18 18:00 Chloride 100.6 mmol/L (98-107) 12/09/18 18:00 Carbon Dioxide 26 mmol/L (22-30) 12/09/18 18:00 18 mmol/L 12/09/18 18:00 BUN 9 mg/dL (7-17) 12/09/18 18:00 0.4 mg/dL (0.7-1.2) L 12/09/18 18:00 Estimated GFR > 60 ml/min 12/09/18 18:00 23 % 12/09/18 18:00 Glucose 91 mg/dL (65-100) 12/09/18 18:00 Calcium 8.7 mg/dL (8.4-10.2) 12/09/18 18:00 144 units/L (30-135) H 12/10/18 05:47 CK-MB (CK-2) 1.5 ng/mL (0.0-4.0) 12/10/18 05:47 CK-MB (CK-2) Rel Index 1.0 (0-4) 12/10/18 05:47 < 0.010 ng/mL (0.00-0.029) 12/10/18 05:47 NT-Pro-B Natriuret Pep 438.7 pg/mL (0-450) 12/09/18 18:00 Active Medications - Current Medications Current Medications: Generic Name Dose Route Start Last Admin Trade Name Freq PRN Reason Stop Dose Admin Acetaminophen 650 mg 12/09/18 21:53 Tylenol PO Q4H PRN Headache Albuterol/Ipratropium 1 ampul 12/11/18 08:00 12/11/18 15:11 Duoneb *Not For Prn Use* IH Not Given TIDRT [facility] Aspirin 81 mg 12/10/18 10:00 12/11/18 09:33 Baby Aspirin PO 81 mg QDAY [facility] Administration Clonazepam 0.5 mg 12/10/18 10:00 12/11/18 09:33 Klonopin PO 0.5 mg BID [facility] Administration Docusate Sodium 100 mg 12/10/18 10:00 12/11/18 09:33 Colace PO 100 mg BID [facility] Administration Heparin Sodium/Sodium Chloride 25,000 unit in 500 mls @ 20 mls/hr 12/09/18 22:00 12/11/18 00:43 Heparin/ 0.45% Nacl-25,000 Unit/500 Ml IV 950 units/hr TITR SANDRA 19 mls/hr Administration Protocol 1,000 UNITS/HR Metoprolol Tartrate 25 mg 12/10/18 10:00 12/11/18 09:37 Lopressor PO Not Given DAILY [facility] Morphine Sulfate 2 mg 12/09/18 21:53 12/11/18 09:41 Morphine IV 2 mg Q3H PRN Administration Pain, Moderate (4-6) Nitroglycerin 0.4 mg 12/09/18 21:52 Nitrostat SL .Q5MIN PRN Chest Pain Ondansetron HCl 4 mg 12/09/18 21:53 Zofran IV Q8H PRN Nausea And Vomiting Oxycodone HCl 30 mg 12/10/18 12:00 12/11/18 12:28 Roxicodone PO 30 mg Q4H PRN Administration Pain , Severe (7-10) Sertraline HCl 100 mg 12/10/18 10:00 12/11/18 09:33 Zoloft PO 100 mg BID [facility] Administration Trazodone HCl 50 mg 12/10/18 00:56 12/10/18 01:11 Desyrel PO 50 mg QHS PRN Administration Sleep Trazodone HCl 100 mg 12/10/18 00:59 12/10/18 01:11 Desyrel PO 100 mg QHS PRN Administration Sleep Warfarin Sodium 7.5 mg 12/10/18 17:00 12/10/18 17:23 Coumadin PO 7.5 mg DAILY@1700 SANDRA Administration
[2018-12-11] MEDS: COUMADIN PO SCH (18:56)
[2018-12-12] MEDS: ROXICODONE PO PRN (00:35)
[2018-12-12] MEDS: DESYREL PO PRN (00:37)
[2018-12-12] MEDS ORDERED: PROVENTIL IH PRN (00:57)
[2018-12-12] MEDS: HEPARIN/ 0.45% NACL-25,000 UNIT/500 ML 25,000 UNIT/500 ML BAG IV SCH (02:40)
[2018-12-12 05:43] LABS: INR 1.17 (0.87-1.13)
[2018-12-12] MEDS: MORPHINE IV PRN (05:58)
--- NOTE | 2018-12-12 07:10 | Discharge Summary ---
Providers - Providers Date of Admission: 12/09/18 21:47 Date of discharge: 12/12/18 Attending physician: ARI PINEDA Primary care physician: MANDI MICHEL Hospitalization Condition: Stable Hospital course: Patient is a 48 yo woman with a history of tobacco dependency, hypertension, anxiety, OA, asthma, fibromyalgia, chronic pain syndrome due to spinal fusion surgery and she takes Oxycodone 6 times a day under the care of pain specialist Dr. Santiago Marshall (according to [place] vanstone machine operator aware she received #180 oxycodone and #[address] Marshall on 12/04/2018) who presents with chest pains, myalgia, sore throat, subjective fevers and cough. pCXR was unremarkable for pneumonia. She had elevated d-dimer and CTA chest ordered but machine is broken so v/q scan performed and showed Intermediate probability for PE, so she was admitted for suspected LLL acute PE and started on IV heparin drip. -Ruled out Acute LLE PE: CTA chest negative -Chest pains most likely due to Acute Asthmatic Bronchitis +/- radiographic COPD -CPS (chronic pain sydrome): continue home narcotics, watch for sedation, add neurochecks -Acute viral bronchitis: supportive care -Tobacco dependency: breastfeeding peer counselor on stopping, offered nicotine patch. DO NOT give narcotics or BZD at discharge Disposition: DC-01 TO HOME OR SELFCARE Time spent for discharge: 33 minutes Core Measure Documentation - Palliative Care Palliative Care/ Comfort Measures: Not Applicable - Core Measures Any of the following diagnoses?: none - VTE Discharge Requirements Deep Vein Thrombosis/Pulmonary Embolism Present on Admission: No Has pt received <5 days of overlap therapy or INR<2.0: No Anticoagulant overlap therapy prescribed at discharge: No Contraindication No Overlap Therapy order at DC: Not Indicated Exam - Physical Exam Narrative exam: Gen: WDWN, NAD, Awake, Alert, Orientated HEENT: NCAT, EOMI, PERRL, OP Clear Neck: supple, no adenopathy, no thyromegaly, no JVD CVS/Heart: RRR, normal S1S2, pulses present bilaterally Chest/Lungs: CTA B, Symmetrical chest expansion, good air entry bilaterally GI/Abdomen: soft, NTND, good bowel sounds, no guarding or rebound /Bladder: no suprapubic tenderness, no CVA or paraspinal tenderness Extermity/Skin: no c/c/e, no obvious rash MSK: FROM x 4 Neuro: CN 2-12 grossly intact, no new focal deficits Psych: calm - Constitutional Vitals: Temp Pulse Resp BP Pulse Ox 98.5 F 59 L 20 113/55 98 12/12/18 04:15 12/12/18 05:48 12/12/18 05:58 12/12/18 05:52 12/12/18 05:48 Plan Special Instructions: smoking cessation Durable Medical Equipment Needed Upon Discharge: Nebulizer Follow up with: JAMESON CARLOSRIVERHEAD MD JOAN [Referring] - 3-5 Days NELDA SWEENEY MD [Staff Physician] - 7 Days Prescriptions: methylPREDNISolone [Medrol 4MG DOSEPAK (21 tabs)] 1 dose PO DAILY #1 tab.ds.pk ALBUTEROL Inhaler (OR & NICU) [ProAir HFA Inhaler] 2 puff IH QID PRN #1 inhalation PRN Reason: Shortness Of Breath ALBUTEROL NEB's [Proventil 0.083% NEBS] 2.5 mg IH TID PRN 31 Days #30 neb PRN Reason: Shortness Of Breath Tiotropium [place] [Spiriva Respimat] 4 gm IH DAILY #1 unit Budesonide/Formoterol Fumarate [Symbicort 160-4.5 Mcg Inhaler] 2 puff IH BID #1 hfa.aer.ad Azithromycin [Zithromax Z-ZANE] 1 dose PO DAILY #1 pack
[2018-12-12 07:53] VITALS: BP 126/65
[2018-12-12] MEDS: DUONEB *Not for PRN Use IH SCH (09:48)
== END 2018-12-12 09:59 | disposition home or self-care (01) | DRG 202 ==
LOC: ED 17:24 → 4A 21:47
PROVIDERS: ADMIT Internal Medicine; ATTEND Internal Medicine
DX: J20.8 Acute bronchitis due to other specified organisms (principal); J44.0 Chronic obstructive pulmonary disease with (acute) lower respiratory infection; J45.909 Unspecified asthma, uncomplicated; G89.4 Chronic pain syndrome; I10 Essential (primary) hypertension; F41.9 Anxiety disorder, unspecified; F32.9 Major depressive disorder, single episode, unspecified; F17.210 Nicotine dependence, cigarettes, uncomplicated; Z86.14 Personal history of Methicillin resistant Staphylococcus aureus infection; Z90.49 Acquired absence of other specified parts of digestive tract; Z98.1 Arthrodesis status; Z88.8 Allergy status to other drugs, medicaments and biological substances; Z90.710 Acquired absence of both cervix and uterus; Z71.6 Tobacco abuse counseling
CPT/HCPCS: 36415; 71045; 71275; 78582; 80048; 82550; 82553; 83880; 84484; 85014; 85018; 85025; 85049; 85379; 85520; 85610; 85730; 93005; 93010; 93970; 94640; 94644; 96372; 96374; G0378; A9540; A9558; J1644; J1650; J2270; J2405; J3010; Q9967

== ENCOUNTER 2019-01-14 07:57 | Emergency (ER) | payer MEDICARE ==
[2019-01-14] MEDS ORDERED: TORADOL IV ONE (09:03)
[2019-01-14] MEDS ORDERED: NORCO 5/325 PO ONE (09:03)
--- NOTE | 2019-01-14 09:47 | XRay Report ---
RIGHT WRIST, 3 VIEWS INDICATION: right wrist pain after fall. COMPARISON: None. IMPRESSION: An impacted comminuted fracture is identified in the distal radial metaphysis. No obviou s intra-articular extension at the radiocarpal joint on x-ray. The distal ulna and carpal bones are u nremarkable. There is mild diffuse soft tissue swelling. Signer Name: Diego Latham Jr, MD Signed: 01/14/2019 9:42 AM Workstation Name: [id number]
--- NOTE | 2019-01-14 10:15 | XRay Report ---
RIGHT FOREARM, 2 VIEWS INDICATION: distal and proximal right forearm pain after fall. COMPARISON: None. IMPRESSION: Comminuted, impacted fracture through the distal radial metaphysis is identified. The re mainder of the radius and ulna are intact. The radial head is unremarkable. Mild distal soft tissue s welling is noted. No significant DJD. Signer Name: Diego Latham Jr, MD Signed: 01/14/2019 10:11 AM Workstation Name: [id number]
--- NOTE | 2019-01-14 10:55 | Emergency Department Report ---
ED Upper Extremity Inj HPI - General Chief Complaint: Fall Stated Complaint: FALL/RT WRIST INJURY Time Seen by Provider: 01/14/19 08:29 Source: patient, EMS Mode of arrival: Stretcher Limitations: No Limitations - History of Present Illness Initial Comments: 48-year-old female the past of arthritis, asthma, COPD, hypertension, anxiety, sciatica, and fibromyalgia presents to Hospital complaining of right wrist injury after trip and fall. Ground level fall occurred 2 hours prior to arrival. She fell backwards and injured her right wrist trying to break her fall. Pain to right and this is moderate to severe in intensity, constant, worse with movement and palpation. She is right-hand dominant. Patient reports that she was just discharged 2 days ago after admission to [place]. She states she had fluid drained from the spine that has been present since her back surgery in June. - Related Data Home Medications Medication Instructions Recorded Confirmed Last Taken RX: Sertraline [Zoloft] 100 mg PO BID 04/17/16 12/09/18 Unknown RX: Oxycodone HCl [roxiCODONE] 30 mg PO Q4-6H PRN 12/09/18 12/09/18 12/09/18 RX: traZODone [Desyrel] 1 - 2 tab PO QHS 12/09/18 12/09/18 Unknown RX: Metoprolol [Lopressor TAB] 25 mg PO DAILY 12/10/18 12/10/18 Unknown Previous Rx's Medication Instructions Recorded Last Taken Type RX: clonazePAM [Clonazepam] 0.5 mg PO BID #14 tablet 01/13/18 Unknown Rx Budesonide/Formoterol Fumarate 2 puff IH BID #1 hfa.aer.ad 12/12/18 Unknown Rx [Symbicort 160-4.5 Mcg Inhaler] RX: ALBUTEROL Inhaler (OR & NICU) 2 puff IH QID PRN #1 inhalation 12/12/18 Unknown Rx [ProAir HFA Inhaler] RX: ALBUTEROL NEB's [Proventil 2.5 mg IH TID PRN 31 Days #30 neb 12/12/18 Unknown Rx 0.083% NEBS] RX: Azithromycin [Zithromax Z-ZANE] 1 dose PO DAILY #1 pack 12/12/18 Unknown Rx Tiotropium [place] [Spiriva 4 gm IH DAILY #1 unit 12/12/18 Unknown Rx Respimat] methylPREDNISolone [Medrol 4MG 1 dose PO DAILY #1 tab.ds.pk 12/12/18 Unknown Rx DOSEPAK (21 tabs)] Ibuprofen [Motrin] 600 mg PO Q8H PRN #20 tablet 01/14/19 Unknown Rx Allergies Allergy/AdvReac Type Severity Reaction Status Date / Time aripiprazole [From Abilify] AdvReac Unknown Verified 11/28/18 19:21 pregabalin [From Lyrica] AdvReac Hives Verified 11/28/18 19:21 ED Review of Systems ROS: Stated complaint: FALL/RT WRIST INJURY Other details as noted in HPI Comment: All other systems reviewed and negative ED Past Medical Hx - Past Medical History Hx Hypertension: Yes Hx Arthritis: Yes Hx Psychiatric Treatment: Yes (Anxiety, depression) Hx Asthma: Yes Hx COPD: Yes Additional medical history: sciatica-firbramyalgia. MRSA - Surgical History Hx Appendectomy: Yes Hx Breast Surgery: Yes (duct from left breast removed) Additional Surgical History: hysterectomy. bilateral carpal tunnel release. spinal fusion - Social History Smoking Status: Current Every Day Smoker Substance Use Type: Alcohol - Medications Home Medications: Home Medications Medication Instructions Recorded Confirmed Last Taken Type RX: Sertraline [Zoloft] 100 mg PO BID 04/17/16 12/09/18 Unknown History RX: clonazePAM [Clonazepam] 0.5 mg PO BID #14 tablet 01/13/18 12/09/18 Unknown Rx RX: Oxycodone HCl [roxiCODONE] 30 mg PO Q4-6H PRN 12/09/18 12/09/18 12/09/18 History RX: traZODone [Desyrel] 1 - 2 tab PO QHS 12/09/18 12/09/18 Unknown History RX: Metoprolol [Lopressor TAB] 25 mg PO DAILY 12/10/18 12/10/18 Unknown History Budesonide/Formoterol Fumarate 2 puff IH BID #1 hfa.aer.ad 12/12/18 Unknown Rx [Symbicort 160-4.5 Mcg Inhaler] RX: ALBUTEROL Inhaler (OR & NICU) 2 puff IH QID PRN #1 inhalation 12/12/18 Unknown Rx [ProAir HFA Inhaler] RX: ALBUTEROL NEB's [Proventil 2.5 mg IH TID PRN 31 Days #30 neb 12/12/18 Unknown Rx 0.083% NEBS] RX: Azithromycin [Zithromax Z-ZANE] 1 dose PO DAILY #1 pack 12/12/18 Unknown Rx Tiotropium [place] [Spiriva 4 gm IH DAILY #1 unit 12/12/18 Unknown Rx Respimat] methylPREDNISolone [Medrol 4MG 1 dose PO DAILY #1 tab.ds.pk 12/12/18 Unknown Rx DOSEPAK (21 tabs)] Ibuprofen [Motrin] 600 mg PO Q8H PRN #20 tablet 01/14/19 Unknown Rx ED Physical Exam - General Limitations: No Limitations - Other Other exam information: Normal: No acute distress Head: Atraumatic Eyes: Normal appearance, pupils equally reactive to light, extraocular movements intact ENT: Moist mucous membranes Neck: Normal appearance, no midline cervical tenderness, no meningismus Chest: Clear to auscultation bilaterally, no wheezes, rales, crackles Cardiovascular: Regular rate and rhythm Abdomen: Soft, nontender, nondistended, no rebound or guarding, normal bowel sounds Back: Normal inspection Extremity: Right wrist deformity noted. Tenderness over the distal radius and snuffbox area. Refill less than 2 seconds. 2+ radial pulse. Neuro: Alert and oriented 3, speech normal, no gross motor sensory deficit Psych: Appropriate Skin: No rash ED Course Vital Signs 01/14/19 01/14/19 01/14/19 08:19 08:20 08:22 Temperature 98.1 F 98.1 F Pulse Rate 80 80 Respiratory 20 20 20 Rate Blood Pressure 100/56 Blood Pressure 100/56 [Left] O2 Sat by Pulse 96 96 96 Oximetry ED Medical Decision Making - Radiology Data Radiology results: report reviewed RIGHT WRIST, 3 VIEWS INDICATION: right wrist pain after fall. COMPARISON: None. IMPRESSION: An impacted comminuted fracture is identified in the distal radial metaphysis. No obvious intra-articular extension at the radiocarpal joint on x-ray. The distal ulna and carpal ky luisa are unremarkable. There is mild diffuse soft tissue swelling. RIGHT FOREARM, 2 VIEWS INDICATION: distal and proximal right forearm pain after fall. COMPARISON: None. IMPRESSION: Comminuted, impacted fracture through the distal radial metaphysis is identified. The remainder of the radius and ulna are intact. The radial head is unremarkable. Mild distal soft tissue swelling is noted. No significant DJD. - Medical Decision Making Patient has a comminuted distal right radius fracture. Placed in OCL splint right radial gutter, inspected by me. Sling provided. Patient provided Toradol and [place] in the ED. Will be discharged with orthopedic follow-up [facility] prescription monitoring site reviewed and patient is prescribed oxycodone 30 mg 90 tablets/15 day supply which she filled yesterday. pt drowsy in ed stating she hasnt slept much and she is tired. pt chronically takes high dose narcotics at home. SBP while sleeping is in the mid to high 90's - Differential Diagnosis fracture, contusion, sprain Critical Care Time: No Critical care attestation.: If time is entered above; I have spent that time in minutes in the direct care of this critically ill patient, excluding procedure time. ED Disposition Clinical Impression: Right wrist fracture Disposition: DC-01 TO HOME OR SELFCARE Is pt being admited?: No Does the pt Need Aspirin: No Condition: Stable Instructions: Wrist Fracture in Adults (ED) Additional Instructions: Take your medications as prescribed. Follow-up with your doctor or the clinic/doctor provided. Return if symptoms worsen. Prescriptions: Ibuprofen [Motrin] 600 mg PO Q8H PRN #20 tablet PRN Reason: Pain Referrals: MANDI MICHEL MD [Primary Care Provider] - 3-5 Days GENEVIEVE BARBA MD [Staff Physician] - 3-5 Days (orthopedic doctor ) Time of Disposition: 11:24
[2019-01-14 12:02] VITALS: BP 104/54
== END 2019-01-14 12:03 | disposition home or self-care (01) ==
LOC: ED 07:57
DX: S52.501A Unspecified fracture of the lower end of right radius, initial encounter for closed fracture (principal); I10 Essential (primary) hypertension; M19.90 Unspecified osteoarthritis, unspecified site; F41.9 Anxiety disorder, unspecified; F32.9 Major depressive disorder, single episode, unspecified; J44.9 Chronic obstructive pulmonary disease, unspecified; Z90.49 Acquired absence of other specified parts of digestive tract; Z90.710 Acquired absence of both cervix and uterus; Z79.899 Other long term (current) drug therapy; Z88.8 Allergy status to other drugs, medicaments and biological substances; W01.0XXA Fall on same level from slipping, tripping and stumbling without subsequent striking against object, initial encounter; Y93.89 Activity, other specified; Y92.89 Other specified places as the place of occurrence of the external cause; Y99.8 Other external cause status
CPT/HCPCS: 29125; 73090; 73110; 96374; 99285; J1885

== ENCOUNTER 2019-03-10 19:48 | Emergency (ER) | payer MEDICARE | END 2019-03-10 20:30 | disposition left against medical advice (07) | LOC: ED 19:48 | DX: M54.9 Dorsalgia, unspecified (principal); Z53.21 Procedure and treatment not carried out due to patient leaving prior to being seen by health care provider ==

== ENCOUNTER 2019-07-02 10:22 | Emergency (ER) | payer MEDICARE ==
[2019-07-02] MEDS ORDERED: ASPIRIN 325 MG TAB PO ONE (10:54)
--- NOTE | 2019-07-02 12:28 | XRay Report ---
CHEST 2 VIEWS INDICATION: Chest Pain. COMPARISON: 12/09/2018 FINDINGS: Support devices: None. Heart: Within normal limits. Pulmonary vasculature: Normal. Lungs/pleura: No acute air space or interstitial disease. No pneumothorax. Additional findings: Prominent left mediastinal calcified lymph node and several bilateral small calc ified granulomata. Degenerative change in the spine IMPRESSION: 1. No acute findings. 2. Old granulomatous disease. Signer Name: Ricky Higgins MD Signed: 07/02/2019 12:23 PM Workstation Name: [id number]
[2019-07-02 13:55] LABS: Basophils % (Auto) 0.3 % (0.0-1.8); Eosinophils % (Auto) 0.1 % (0.0-4.3); Hematocrit 48.6 % (30.3-42.9); Hemoglobin 15.8 gm/dl (10.1-14.3); Lymphocytes # (Auto) 1.1 K/mm3 (1.2-5.4); Lymphocytes % (Auto) 8.7 % (13.4-35.0); Mean Corpuscular HGB Conc 33 % (30-34); Mean Corpuscular Volume 86 fl (79-97); Monocytes # (Auto) 0.5 K/mm3 (0.0-0.8); Monocytes % (Auto) 4.1 % (0.0-7.3); Platelet Count 428 K/mm3 (140-440); Red Blood Count 5.68 M/mm3 (3.65-5.03); Red Cell Distribution Width 15.3 % (13.2-15.2)
[2019-07-02 13:57] LABS: BUN/Creatinine Ratio 28; Blood Urea Nitrogen 11 mg/dL (7-17); Calcium 10.1 mg/dL (8.4-10.2); Hemolysis Index 2
[2019-07-02] MEDS ORDERED: MORPHINE 4 MG/1 ML INJ IV ONE (18:35)
[2019-07-02] MEDS ORDERED: ONDANSETRON 4 MG/2 ML INJ IV ONE ×2 (18:35→22:17)
--- NOTE | 2019-07-02 18:51 | Emergency Department Report ---
ED Chest Pain HPI - General Chief Complaint: Chest Pain Stated Complaint: BACK/ABD PAIN Time Seen by Provider: 07/02/19 18:25 Source: patient Mode of arrival: Ambulatory Limitations: No Limitations - History of Present Illness Initial Comments: 49-year-old -[place] female presents to the emergency department with a complaint of a 2 to 3-day history of some lower abdominal pain with radiation to the back that has worsened in the past 24 hours. Today the patient also developed some diarrhea. The patient mentions something about chest pain thr [facility] triage but did not mention that to me as the reason for her visit until she was asked about it. At that point she says that she had some tightness in the chest that "could be my asthma" and she developed a dry cough upon arrival to our emergency department. She has a past medical history of asthma, COPD, hypertension, anxiety, sciatica, fibromyalgia. The patient says she has a history of 2 different lumbar spinal fusions that leaves her with some occasional seromas. Her primary care physician is through [place]. She has not taken anything for symptoms today prior to presentation. Severity scale (0 -10): 6 - Related Data Home Medications Medication Instructions Recorded Confirmed Last Taken Sertraline [Zoloft] 100 mg PO BID 04/17/16 12/09/18 Unknown Oxycodone HCl [roxiCODONE] 30 mg PO Q4-6H PRN 12/09/18 12/09/18 12/09/18 traZODone [Desyrel] 1 - 2 tab PO QHS 12/09/18 12/09/18 Unknown Metoprolol [Lopressor TAB] 25 mg PO DAILY 12/10/18 12/10/18 Unknown Previous Rx's Medication Instructions Recorded Last Taken Type clonazePAM [Clonazepam] 0.5 mg PO BID #14 tablet 01/13/18 Unknown Rx ALBUTEROL NEB's [Proventil 0.083% 2.5 mg IH TID PRN 31 Days #30 neb 12/12/18 Unknown Rx NEBS] Albuterol INH(or & Nicu Only) 2 puff IH QID PRN #1 inhalation 12/12/18 Unknown Rx [ProAir HFA Inhaler] Azithromycin [Zithromax Z-ZANE] 1 dose PO DAILY #1 pack 12/12/18 Unknown Rx Budesonide/Formoterol Fumarate 2 puff IH BID #1 hfa.aer.ad 12/12/18 Unknown Rx [Symbicort 160-4.5 Mcg Inhaler] Tiotropium [place] [Spiriva 4 gm IH DAILY #1 unit 12/12/18 Unknown Rx Respimat] methylPREDNISolone [Medrol 4MG 1 dose PO DAILY #1 tab.ds.pk 12/12/18 Unknown Rx DOSEPAK (21 tabs)] Ibuprofen [Motrin] 600 mg PO Q8H PRN #20 tablet 01/14/19 Unknown Rx Ondansetron [Zofran Odt] 4 mg PO Q8HR PRN #15 tab.rapdis 07/02/19 Unknown Rx Allergies Allergy/AdvReac Type Severity Reaction Status Date / Time aripiprazole [From Abilify] AdvReac Unknown Verified 11/28/18 19:21 pregabalin [From Lyrica] AdvReac Hives Verified 11/28/18 19:21 Heart Score - HEART Score History: Slightly suspicious EKG: Normal Age: 45-65 Risk factors: 1-2 risk factors Troponin: < normal limit HEART Score: 2 - Critical Actions Critical Actions: 0-3 pts:0.9-1.7%risk of adverse cardiac event.Candidate for discharge ED Review of Systems ROS: Stated complaint: BACK/ABD PAIN Other details as noted in HPI Comment: All other systems reviewed and negative Constitutional: denies: chills, fever Eyes: denies: eye pain, vision change ENT: denies: ear pain, throat pain Respiratory: cough, wheezing Cardiovascular: chest pain. denies: edema Gastrointestinal: abdominal pain, diarrhea. denies: vomiting Genitourinary: denies: dysuria, discharge Musculoskeletal: back pain. denies: arthralgia Skin: denies: rash, lesions Neurological: denies: headache, weakness ED Past Medical Hx - Past Medical History Hx Hypertension: Yes Hx Arthritis: Yes Hx Psychiatric Treatment: Yes (Anxiety, depression) Hx Asthma: Yes Hx COPD: Yes Additional medical history: sciatica-firbramyalgia. MRSA - Surgical History Hx Appendectomy: Yes Hx Breast Surgery: Yes (duct from left breast removed) Additional Surgical History: hysterectomy. bilateral carpal tunnel release. spinal fusion - Social History Smoking Status: Never Smoker Substance Use Type: None - Medications Home Medications: Home Medications Medication Instructions Recorded Confirmed Last Taken Type Sertraline [Zoloft] 100 mg PO BID 04/17/16 12/09/18 Unknown History clonazePAM [Clonazepam] 0.5 mg PO BID #14 tablet 01/13/18 12/09/18 Unknown Rx Oxycodone HCl [roxiCODONE] 30 mg PO Q4-6H PRN 12/09/18 12/09/18 12/09/18 History traZODone [Desyrel] 1 - 2 tab PO QHS 12/09/18 12/09/18 Unknown History Metoprolol [Lopressor TAB] 25 mg PO DAILY 12/10/18 12/10/18 Unknown History ALBUTEROL NEB's [Proventil 0.083% 2.5 mg IH TID PRN 31 Days #30 neb 12/12/18 Unknown Rx NEBS] Albuterol INH(or & Nicu Only) 2 puff IH QID PRN #1 inhalation 12/12/18 Unknown Rx [ProAir HFA Inhaler] Azithromycin [Zithromax Z-ZANE] 1 dose PO DAILY #1 pack 12/12/18 Unknown Rx Budesonide/Formoterol Fumarate 2 puff IH BID #1 hfa.aer.ad 12/12/18 Unknown Rx [Symbicort 160-4.5 Mcg Inhaler] Tiotropium [place] [Spiriva 4 gm IH DAILY #1 unit 12/12/18 Unknown Rx Respimat] methylPREDNISolone [Medrol 4MG 1 dose PO DAILY #1 tab.ds.pk 12/12/18 Unknown Rx DOSEPAK (21 tabs)] Ibuprofen [Motrin] 600 mg PO Q8H PRN #20 tablet 01/14/19 Unknown Rx Ondansetron [Zofran Odt] 4 mg PO Q8HR PRN #15 tab.rapdis 07/02/19 Unknown Rx ED Physical Exam - General Limitations: No Limitations - Other Other exam information: GENERAL: The patient is well-developed well-nourished. HENT: Normocephalic. Atraumatic. Patient has moist mucous membranes. EYES: Extraocular motions are intact. NECK: Supple. Trachea is midline. CHEST/LUNGS: Clear to auscultation. There is no respiratory distress noted. HEART/CARDIOVASCULAR: Regular. There is no tachycardia. There is no murmur. ABDOMEN: Abdomen is soft. Lower abdominal tenderness to palpation. No guarding. Patient has normal bowel sounds. There is no abdominal distention. SKIN: Skin is warm and dry. NEURO: The patient is awake, alert, and oriented. The patient is cooperative. The patient has no focal neurologic deficits. Normal speech. MUSCULOSKELETAL: There is no tenderness or deformity. There is no evidence of acute injury. ED Course Vital Signs 07/02/19 07/02/19 07/02/19 10:53 17:18 19:50 Temperature 98.2 F 97.3 F L Pulse Rate 94 H 88 88 Respiratory 18 20 Rate Blood Pressure 140/79 141/78 O2 Sat by Pulse 100 Oximetry 07/02/19 07/02/19 07/02/19 20:00 20:16 20:30 Temperature Pulse Rate 72 73 82 Respiratory 16 9 L 12 Rate Blood Pressure O2 Sat by Pulse 98 100 98 Oximetry 07/02/19 07/02/19 07/02/19 20:46 21:00 21:16 Temperature Pulse Rate 77 71 78 Respiratory 15 11 L 10 L Rate Blood Pressure 134/66 129/74 O2 Sat by Pulse 98 99 100 Oximetry 07/02/19 07/02/19 21:30 21:46 Temperature Pulse Rate 81 77 Respiratory 22 10 L Rate Blood Pressure 114/63 110/80 O2 Sat by Pulse 98 100 Oximetry LAMIN score - Lamin Score Age > 65: (0) No Aspirin use within the Past 7 Days: (0) No 3 or more CAD Risk Factors: (0) No 2 or more Angina events in past 24 hrs: (1) Yes Known CAD with more than 50% Stenosis: (0) No Elevated Cardiac Markers: (0) No ST Deviation Greater than 0.5mm: (0) No LAMIN Score: 1 ED Medical Decision Making - Lab Data Result diagrams: 07/02/19 12:27 07/02/19 12:27 - EKG Data -: EKG Interpreted by Me EKG shows normal: sinus rhythm, axis, intervals, QRS complexes, ST-T waves Rate: normal - EKG Data When compared to previous EKG there are: previous EKG unavailable Interpretation: normal EKG - Radiology Data Radiology results: report reviewed, image reviewed interpreted by me: Chest x-ray does not show any acute process. There are no pleural effusions, obvious pneumonia and there is no pneumothorax. CT ABDOMEN AND PELVIS WITH CONTRAST INDICATION / CLINICAL INFORMATION: lower abd pain. TECHNIQUE: Axial CT images were obtained through the abdomen and pelvis after 100 mL of Omnipaque 350 mg percent IV contrast. All CT scans at this location are performed using CT dose reduction for ALARA by means of automated exposure control. COMPARISON: 08/01/2018 FINDINGS: LOWER CHEST: No significant abnormality. LIVER: No significant abnormality. GALLBLADDER: No significant abnormality. BILE DUCTS: No significant abnormality. PANCREAS: No significant abnormality. SPLEEN: No significant abnormality. ADRENALS: No significant abnormality. RIGHT KIDNEY and URETER: No significant abnormality. LEFT KIDNEY and URETER: No significant abnormality. STOMACH and SMALL BOWEL: No significant abnormality. COLON: No significant abnormality. APPENDIX: No significant abnormality. PERITONEUM: No free fluid. No free air. No fluid collection. LYMPH NODES: No significant adenopathy. AORTA and ARTERIES: No significant abnormality. IVC and VEINS: No significant abnormality. URINARY BLADDER: No significant abnormality. REPRODUCTIVE ORGANS: No significant abnormality. Evidence of previous hysterectomy ADDITIONAL FINDINGS: None. SKELETAL SYSTEM: Extensive orthopedic hardware is present lumbar sacral spine. Artifact from orthopedic hardware noted IMPRESSION: 1. No significant abnormality. - Medical Decision Making This patient presents with a 2 to 3-day history of some lower abdominal pain that radiates around towards her back. She also complains of a 1 day history of some diarrhea. Lastly she has a complaint of some nonspecific chest tightness. Regarding the chest tightness, the patient had an EKG that is normal without ST elevation GA, ischemia or dysrhythmia. Chest x-ray did not show any acute process. Her unremarkable labs included negative troponins x3. Patient has a low heart and LAMIN score. For these reasons, the patient's contact information has been sent to [facility] cardiology and someone from their office will be contacting her shortly for close outpatient follow-up. She has been instructed to return to the emergency department with any return of her chest pain. Regarding the patient's abdominal pain, a CT scan of the abdomen pelvis with IV contrast was completed that did not show any acute abdominal or pelvic process. She has some slight tenderness to palpation in the lower abdominal regions but the abdomen is soft, nondistended and nontoxic in appearance. Her labs were unremarkable including CBC and metabolic panel and urinalysis. The patient was given some analgesia with improvement of her discomfort. She will be discharged home with a referral for gastroenterology. Overall the patient has been instructed to return to the emergency department with any worsening of her symptoms or with any acute distress. - Differential Diagnosis Appendicitis, colitis, diverticulitis, bowel obstruction Critical Care Time: No Critical care attestation.: If time is entered above; I have spent that time in minutes in the direct care of this critically ill patient, excluding procedure time. ED Disposition Clinical Impression: Chest pain Qualifiers: Chest pain type: unspecified Qualified Code(s): R07.9 - Chest pain, unspecified Abdominal pain Qualifiers: Abdominal location: unspecified location Qualified Code(s): R10.9 - Unspecified abdominal pain Disposition: TO HOME OR SELFCARE Is pt being admited?: No Condition: Stable Instructions: Chest Pain (ED), Abdominal Pain (ED) Additional Instructions: Please follow-up with your primary care physician and pain management physician in the next few days. I have sent your contact information over to [facility] cardiology and someone should be contacting you shortly for close outpatient follow-up regarding your chest pains. I am also giving you a ref erral for [facility]ology regarding your abdominal pain. Return to the emergency department with any worsening of your symptoms or any acute distress. Prescriptions: Ondansetron [Zofran Odt] 4 mg PO Q8HR PRN #15 tab.rapdis PRN Reason: Nausea Referrals: PRIMARY CARE,MD [Primary Care Provider] - 2-3 Days [facility] [Provider Group] - 2-3 Days [facility] [Provider Group] - 2-3 Days Time of Disposition: 21:48
--- NOTE | 2019-07-02 19:55 | Cat Scan Report ---
CT ABDOMEN AND PELVIS WITH CONTRAST INDICATION / CLINICAL INFORMATION: lower abd pain. TECHNIQUE: Axial CT images were obtained through the abdomen and pelvis after 100 mL of Omnipaque 350 mg percent IV contrast. All CT scans at this location are performed using CT dose reduction for ALARA by means of automated exposure control. COMPARISON: 08/01/2018 FINDINGS: LOWER CHEST: No significant abnormality. LIVER: No significant abnormality. GALLBLADDER: No significant abnormality. BILE DUCTS: No significant abnormality. PANCREAS: No significant abnormality. SPLEEN: No significant abnormality. ADRENALS: No significant abnormality. RIGHT KIDNEY and URETER: No significant abnormality. LEFT KIDNEY and URETER: No significant abnormality. STOMACH and SMALL BOWEL: No significant abnormality. COLON: No significant abnormality. APPENDIX: No significant abnormality. PERITONEUM: No free fluid. No free air. No fluid collection. LYMPH NODES: No significant adenopathy. AORTA and ARTERIES: No significant abnormality. IVC and VEINS: No significant abnormality. URINARY BLADDER: No significant abnormality. REPRODUCTIVE ORGANS: No significant abnormality. Evidence of previous hysterectomy ADDITIONAL FINDINGS: None. SKELETAL SYSTEM: Extensive orthopedic hardware is present lumbar sacral spine. Artifact from orthopedic hardware noted IMPRESSION: 1. No significant abnormality. Signer Name: Marcio Panchal MD Signed: 07/02/2019 7:50 PM Workstation Name: [id number]
[2019-07-02 19:59] LABS: Alanine Aminotransferase 21 units/L (7-56); Albumin 4.5 g/dL (3.9-5)
[2019-07-02 20:03] LABS: Bilirubin,Direct < 0.2 mg/dL (0-0.2)
[2019-07-02 20:10] LABS: Bilirubin,Urine NEG (Negative); Blood,Urine NEG (Negative); Color,Urine Yellow (Yellow); Mucus,Urine FEW /HPF; Protein,Urine <15 mg/dL mg/dL (Negative)
[2019-07-02] MEDS ORDERED: HYDROmorphone 1 MG/1 ML INJ IV ONE (20:21)
[2019-07-02 21:54] VITALS: BP 110/80
== END 2019-07-02 22:35 | disposition home or self-care (01) ==
LOC: ED 10:22
DX: R07.89 Other chest pain (principal); R10.30 Lower abdominal pain, unspecified; M54.5 Low back pain; R05 Cough; I10 Essential (primary) hypertension; J44.9 Chronic obstructive pulmonary disease, unspecified; M19.90 Unspecified osteoarthritis, unspecified site; F41.9 Anxiety disorder, unspecified; F32.9 Major depressive disorder, single episode, unspecified; Z88.8 Allergy status to other drugs, medicaments and biological substances; Z79.899 Other long term (current) drug therapy; Z90.710 Acquired absence of both cervix and uterus; Z98.890 Other specified postprocedural states
CPT/HCPCS: 36415; 71046; 74177; 80048; 80076; 81001; 83690; 84484; 85025; 93005; 93010; 96374; 96375; 96376; 99285; J1170; J2270; J2405; Q9967

== ENCOUNTER 2019-07-28 17:34 | Emergency (ER) | payer MEDICARE ==
[2019-07-28 17:42] VITALS: BP 144/83
--- NOTE | 2019-07-28 17:54 | Emergency Department Report ---
Blank Doc - Documentation Documentation: 49-year-old female that presents with right flank pain and nausea with SOB and cough. HX of COPD. This initial assessment/diagnostic orders/clinical plan/treatment(s) is/are subject to change based on patient's health status, clinical progression and re- assessment by fellow clinical providers in the ED. Further treatment and workup at subsequent clinical providers discretion. Patient/guardians urged not to elope from the ED as their condition may be serious if not clinically assessed and managed. Initial orders include: 1- Patient sent to [facility] for further evaluation and treatment 2- CXR 3- UA
--- NOTE | 2019-07-28 18:30 | XRay Report ---
CHEST 2 VIEWS INDICATION: cough/sob. COMPARISON: 07/02/2019 FINDINGS: Support devices: None. Heart: Within normal limits. Lungs/Pleura: No acute air space or interstitial disease. Prior granulomatous exposure. No significan t pleural effusion. IMPRESSION: No acute findings. Signer Name: Jay Arenas MD Signed: 07/28/2019 6:26 PM Workstation Name: [id number]
== END 2019-07-28 19:45 | disposition left against medical advice (07) ==
LOC: ED 17:34
DX: M54.89 Other dorsalgia (principal); Z53.21 Procedure and treatment not carried out due to patient leaving prior to being seen by health care provider
CPT/HCPCS: 71046

== ENCOUNTER 2019-10-31 21:05 | Emergency (ER) | payer MEDICARE ==
[2019-10-31 21:31] VITALS: BP 140/83
[2019-10-31] MEDS ORDERED: ALBUTEROL 2.5 MG/3 ML NEBU IH ONE (22:43)
[2019-10-31] MEDS ORDERED: dexAMETHasone 20 MG/5 ML VIAL IM ONE (22:43)
[2019-10-31] MEDS ORDERED: IPRATROPIUM 0.02% NEBU 2.5 ML IH ONE (22:43)
--- NOTE | 2019-10-31 22:46 | Emergency Department Report ---
ED General Adult HPI - General Chief complaint: Skin Rash Stated complaint: SHINGLES/FEVER/COUGH Time Seen by Provider: 10/31/19 22:42 Source: patient Mode of arrival: Ambulatory Limitations: No Limitations - History of Present Illness Initial comments: 49-year-old -[place] female presents to the emergency room complaint of upper body rash that itches, body aches, headache that started today. Patient states that she has talked to her primary care doctor and he instructed her to come to the ER for evaluation for shingles. Patient denies any new soaps close detergents or perfumes. Patient does admit to nasal congestion no runny eyes no runny nose. She does admit to low-grade fever about 100.0. She reports that she has been having shortness of breath and use her inhaler. Patient states that she is is in pain management and she has been taking her Roxicodone 30 mg 4 times daily without much relief of the body aches. -: This afternoon Location: chest Radiation: non-radiation Severity scale (0 -10): 0 Quality: other (Itching) Consistency: constant Improves with: none Worsens with: none Associated Symptoms: cough, headaches, shortness of breath, weakness. denies: nausea/vomiting - Related Data Home Medications Medication Instructions Recorded Confirmed Last Taken Sertraline [Zoloft] 100 mg PO DAILY 04/17/16 12/09/18 Unknown Oxycodone HCl [roxiCODONE] 30 mg PO Q4-6H PRN 12/09/18 08/20/19 12/09/18 traZODone [Desyrel] 1 - 2 tab PO QHS 12/09/18 08/20/19 Unknown Metoprolol [Lopressor TAB] 25 mg PO DAILY 12/10/18 08/20/19 Unknown Baclofen [Lioresal] 1 tab PO QID PRN 08/20/19 08/20/19 Unknown buPROPion XL [Wellbutrin XL] 150 mg PO QAM 08/20/19 08/20/19 Unknown Previous Rx's Medication Instructions Recorded Last Taken Type clonazePAM [Clonazepam] 0.5 mg PO BID #14 tablet 01/13/18 Unknown Rx Budesonide/Formoterol Fumarate 2 puff IH BID #1 hfa.aer.ad 12/12/18 Unknown Rx [Symbicort 160-4.5 Mcg Inhaler] cefUROXime [Ceftin] 2 tab PO Q12H #20 tablet 08/20/19 Unknown Rx Albuterol INH(or & Nicu Only) 2 puff IH QID PRN #1 inhalation 10/07/19 Unknown Rx [ProAir HFA Inhaler] Allergies Allergy/AdvReac Type Severity Reaction Status Date / Time aripiprazole [From Abilify] AdvReac Unknown Verified 11/28/18 19:21 pregabalin [From Lyrica] AdvReac Hives Verified 11/28/18 19:21 ED Review of Systems ROS: Stated complaint: SHINGLES/FEVER/COUGH Other details as noted in HPI Comment: All other systems reviewed and negative ED Past Medical Hx - Past Medical History Previous Medical History?: Yes Hx Hypertension: Yes Hx Arthritis: Yes Hx Psychiatric Treatment: Yes (Anxiety, depression) Hx Asthma: Yes Hx COPD: Yes Additional medical history: Fibromyalgia. MRSA - Surgical History Past Surgical History?: Yes Hx Appendectomy: Yes Hx Breast Surgery: Yes (duct from left breast removed) Additional Surgical History: hysterectomy. bilateral carpal tunnel release. spinal fusion - Social History Smoking Status: Current Every Day Smoker Substance Use Type: None - Medications Home Medications: Home Medications Medication Instructions Recorded Confirmed Last Taken Type Sertraline [Zoloft] 100 mg PO DAILY 04/17/16 12/09/18 Unknown History clonazePAM [Clonazepam] 0.5 mg PO BID #14 tablet 01/13/18 08/20/19 Unknown Rx Oxycodone HCl [roxiCODONE] 30 mg PO Q4-6H PRN 12/09/18 08/20/19 12/09/18 History traZODone [Desyrel] 1 - 2 tab PO QHS 12/09/18 08/20/19 Unknown History Metoprolol [Lopressor TAB] 25 mg PO DAILY 12/10/18 08/20/19 Unknown History Budesonide/Formoterol Fumarate 2 puff IH BID #1 hfa.aer.ad 12/12/18 08/20/19 Unknown Rx [Symbicort 160-4.5 Mcg Inhaler] Baclofen [Lioresal] 1 tab PO QID PRN 08/20/19 08/20/19 Unknown History buPROPion XL [Wellbutrin XL] 150 mg PO QAM 08/20/19 08/20/19 Unknown History cefUROXime [Ceftin] 2 tab PO Q12H #20 tablet 08/20/19 Unknown Rx Albuterol INH(or & Nicu Only) 2 puff IH QID PRN #1 inhalation 10/07/19 Unknown Rx [ProAir HFA Inhaler] ED Physical Exam - General Limitations: No Limitations General appearance: alert, in no apparent distress - Head Head exam: Present: atraumatic, normocephalic - Eye Eye exam: Present: normal appearance - ENT ENT exam: Present: mucous membranes moist - Neck Neck exam: Present: normal inspection, full ROM - Respiratory Respiratory exam: Present: wheezes, rhonchi - Cardiovascular Cardiovascular Exam: Present: tachycardia - GI/Abdominal GI/Abdominal exam: Present: soft, normal bowel sounds - Extremities Exam Extremities exam: Present: full ROM - Back Exam Back exam: Present: normal inspection, full ROM - Neurological Exam Neurological exam: Present: alert, oriented X3 - Psychiatric Psychiatric exam: Present: normal affect, normal mood - Skin Skin exam: Present: rash ED Course Vital Signs 10/31/19 21:27 Temperature 98.8 F Pulse Rate 106 H Respiratory 18 Rate Blood Pressure 140/83 O2 Sat by Pulse 97 Oximetry ED Medical Decision Making - Lab Data Result diagrams: 10/31/19 23:07 10/31/19 23:07 Laboratory Tests 10/31/19 10/31/19 23:07 23:07 WBC 9.7 RBC 4.19 Hgb 12.3 Hct 36.7 MCV 88 MCH 29 MCHC 34 RDW 13.9 Plt Count 281 Lymph % (Auto) 25.3 [place] % (Auto) 9.8 H Eos % (Auto) 3.8 Baso % (Auto) 0.4 Lymph # 2.5 [place] # 1.0 H Eos # 0.4 Baso # 0.0 Seg Neutrophils % 60.7 Seg Neutrophils # 5.9 Sodium 138 Potassium 4.1 Chloride 100.8 Carbon Dioxide 24 Anion Gap 17 BUN 18 H Creatinine 0.7 Estimated GFR > 60 BUN/Creatinine Ratio 26 Glucose 126 H Calcium 9.1 Total Bilirubin 0.20 AST 27 ALT 22 Alkaline Phosphatase 74 Total Protein 7.2 Albumin 4.0 Albumin/Globulin Ratio 1.3 - Radiology Data Radiology results: report reviewed Patient Name: VERONICA CONRAD Gender: Female Date of : 1970 Referring Provider: VALDEMAR OLIVIA Organization: [facility] Accession Number: [id number] Requested Date: October 31, 2019 22:43 Report Status: Final Requested Procedure: 1 Procedure Description: XR chest routine 2V Modality: XR Findings Reporting MD: Flakito Mclean Dictation Time: October 31, 2019 22:08 [place]: Not available 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 COMPARISON: 10/07/2019 FINDINGS: Support devices: None Heart: Normal and unchanged Lungs/Pleura: No acute disease. Calcified superior left hilar node. IMPRESSION: 1. No active disease. Signer Name: Flakito Mclean MD Signed: 10/31/2019 10:08 PM Workstation Name: [id number] - Medical Decision Making 49-year-old -[place] female presents to the emergency room complaint of upper body rash that itches, body aches, headache that started today. Patient states that she has talked to her primary care doctor and he instructed her to come to the ER for evaluation for shingles. Patient denies any new soaps close detergents or perfumes. Patient does admit to nasal congestion no runny eyes no runny nose. She does admit to low-grade fever about 100.0. She reports that she has been having shortness of breath and use her inhaler. Patient states that she is is in pain management and she has been taking her Roxicodone 30 mg 4 times daily without much relief of the body aches. CBC, CMP, chest x-ray has been ordered. Chest x-ray is negative for any acute findings, CBC CMP are negative. You do not have shingles. You should follow-up with your primary care provider for further evaluation. Critical care attestation.: If time is entered above; I have spent that time in minutes in the direct care of this critically ill patient, excluding procedure time. ED Disposition Clinical Impression: Fibromyalgia, Bipolar disorder, Rash and nonspecific skin eruption Disposition: DC-01 TO HOME OR SELFCARE Is pt being admited?: No Does the pt Need Aspirin: No Condition: Stable Additional Instructions: Chest x-ray is negative for any acute findings, labs are negative. You do not have shingles. You should follow-up with your primary care provider for further evaluation. Referrals: PRIMARY CARE, [Primary Care Provider] - 3-5 Days Forms: Work/School Release Form(ED)
--- NOTE | 2019-10-31 23:12 | XRay Report ---
CHEST PA AND LATERAL VIEWS INDICATION: Shortness of breath wheezing rhonchus. COMPARISON: 10/07/2019 FINDINGS: Support devices: None Heart: Normal and unchanged Lungs/Pleura: No acute disease. Calcified superior left hilar node. IMPRESSION: 1. No active disease. Signer Name: Flakito Mclean MD Signed: 10/31/2019 11:08 PM Workstation Name: [email or web address]
[2019-10-31 23:32] LABS: Basophils % (Auto) 0.4 % (0.0-1.8); Eosinophils # (Auto) 0.4 K/mm3 (0.0-0.4); Eosinophils % (Auto) 3.8 % (0.0-4.3); Hematocrit 36.7 % (30.3-42.9); Hemoglobin 12.3 gm/dl (10.1-14.3); Lymphocytes # (Auto) 2.5 K/mm3 (1.2-5.4); Lymphocytes % (Auto) 25.3 % (13.4-35.0); Mean Corpuscular HGB Conc 34 % (30-34); Mean Corpuscular Volume 88 fl (79-97); Monocytes % (Auto) 9.8 % (0.0-7.3); Platelet Count 281 K/mm3 (140-440); Red Blood Count 4.19 M/mm3 (3.65-5.03); Red Cell Distribution Width 13.9 % (13.2-15.2)
[2019-10-31 23:53] LABS: Alanine Aminotransferase 22 units/L (7-56); BUN/Creatinine Ratio 26; Blood Urea Nitrogen 18 mg/dL (7-17); Calcium 9.1 mg/dL (8.4-10.2); Hemolysis Index 15
== END 2019-11-01 00:15 | disposition home or self-care (01) ==
LOC: ED 21:05
DX: M79.7 Fibromyalgia (principal); R21 Rash and other nonspecific skin eruption; F31.9 Bipolar disorder, unspecified; R51 Headache; I10 Essential (primary) hypertension; M19.91 Primary osteoarthritis, unspecified site; J44.9 Chronic obstructive pulmonary disease, unspecified; F17.200 Nicotine dependence, unspecified, uncomplicated; Z90.49 Acquired absence of other specified parts of digestive tract; Z98.890 Other specified postprocedural states; Z79.899 Other long term (current) drug therapy; Z88.8 Allergy status to other drugs, medicaments and biological substances
CPT/HCPCS: 36415; 71046; 80053; 85025; 94640; 96372; 99284; J1100

== ENCOUNTER 2019-11-20 13:22 | Emergency (ER) | payer MEDICARE ==
--- NOTE | 2019-11-20 14:25 | Event Note ---
ED Screening Note ED Screening Note: ETOH use last night states fell on the way to the bathroom c/o headache and facial pain and left shoulder pain no LOC, no vomiting, no numbness, no weakness, no bowel or bladder incontinence pt is on narcotics for chronic pain This initial assessment/diagnostic orders/clinical plan/treatment(s) is/are subject to change based on patients health status, clinical progression and re- assessment by fellow clinical providers in the ED. Further treatment and workup at subsequent clinical providers discretion. Patient/guardian urged not to elope from the ED as their condition may be serious if not clinically assessed and managed. Initial orders include: labs imaging
--- NOTE | 2019-11-20 15:12 | Cat Scan Report ---
CT HEAD WITHOUT CONTRAST INDICATION / CLINICAL INFORMATION: Trauma. Patient fell sustaining head injury. TECHNIQUE: All CT scans at this location are performed using CT dose reduction for ALARA by means of automated e xposure control. COMPARISON: None available. FINDINGS: HEMORRHAGE: No evidence of intracranial hemorrhage or extra-axial fluid collection. EXTRA-AXIAL SPACES: Cortical sulci, sylvian fissures and basilar cisterns have an unremarkable appear ance. VENTRICULAR SYSTEM: The ventricular system is of normal size and configuration. CEREBRAL PARENCHYMA: No areas of abnormal brain parenchymal attenuation are identified. There is no i ndication of recent infarction. MIDLINE SHIFT OR HERNIATION: There is no mass effect. CEREBELLUM / BRAINSTEM: Brainstem and cerebellum have an unremarkable appearance. MIDLINE STRUCTURES:No abnormalities of the pineal region are identified. Sella turcica is dilated and filled with CSF attenuation material consistent with "empty sella turcica". INTRACRANIAL VESSELS:No abnormalities are identified on this noncontrast head CT. ORBITS: visualized portions of the orbits have an unremarkable appearance. SOFT TISSUES of HEAD: No significant abnormality. CALVARIUM: Evaluation of bone windows reveals no abnormalities. PARANASAL SINUSES / MASTOID AIR CELLS: Paranasal sinuses are free from inflammatory mucosal disease. Mastoid air cells are normally pneumatized. IMPRESSION: 1. No significant abnormality on head CT without contrast. Signer Name: Parker Perez MD Signed: 11/20/2019 3:08 PM Workstation Name: [id number]
--- NOTE | 2019-11-20 15:16 | Cat Scan Report ---
CT CERVICAL SPINE WITHOUT CONTRAST INDICATION / CLINICAL INFORMATION: Trauma. Patient fell sustaining neck injury. Neck pain.. TECHNIQUE: Axial CT images were obtained through the cervical spine. Sagittal and coronal reformatted images wer e produced. All CT scans at this location are performed using CT dose reduction for ALARA by means of automated exposure control. COMPARISON: None available. FINDINGS: ALIGNMENT: Loss of the normal cervical lordosis is noted. No additional abnormalities are identified. There is no indication of traumatic subluxation. VERTEBRAE: No indication of fracture. DISC SPACES: Disc height is decreased at the C5-6 level. INDIVIDUAL LEVEL ANALYSIS: C2-3:No abnormality. C3-4:No abnormality. C4-5:No abnormality. C5-6: Loss of disc height is noted. Anterior osteophyte formation is observed. Reactive changes secon edna to degenerative disc disease are seen at the adjacent endplates. Mild uncovertebral arthropathy is noted bilaterally. There is no indication of central canal stenosis or neuroforaminal narrowing. C6-7:No abnormality. C7-T1:No abnormality. CRANIOCERVICAL JUNCTION:No significant abnormality. SPINAL CANAL: Central spinal canal is adequately maintained throughout. PARASPINAL SOFT TISSUES: No significant abnormality. ADDITIONAL FINDINGS: None. LUNG APICES: No significant abnormality of visualized lungs. IMPRESSION: 1. Degenerative changes at C5-6 without indication of central canal stenosis or neuroforaminal narrow ing. 2. No indication of fracture or traumatic subluxation. Signer Name: Parker Perez MD Signed: 11/20/2019 3:12 PM Workstation Name: [id number]
[2019-11-20 15:29] LABS: Basophils # (Auto) 0.1 K/mm3 (0.0-0.1); Basophils % (Auto) 0.6 % (0.0-1.8); Eosinophils # (Auto) 0.1 K/mm3 (0.0-0.4); Eosinophils % (Auto) 0.7 % (0.0-4.3); Hematocrit 46.1 % (30.3-42.9); Hemoglobin 14.9 gm/dl (10.1-14.3); Lymphocytes # (Auto) 1.8 K/mm3 (1.2-5.4); Lymphocytes % (Auto) 20.9 % (13.4-35.0); Mean Corpuscular HGB Conc 32 % (30-34); Mean Corpuscular Volume 88 fl (79-97); Monocytes # (Auto) 0.4 K/mm3 (0.0-0.8); Monocytes % (Auto) 4.2 % (0.0-7.3); Platelet Count 462 K/mm3 (140-440); Red Blood Count 5.27 M/mm3 (3.65-5.03); Red Cell Distribution Width 14.5 % (13.2-15.2)
[2019-11-20 15:40] LABS: INR 1.08 (0.87-1.13)
[2019-11-20 15:41] LABS: Partial Thromboplastin Time 27.2 Sec. (24.2-36.6)
[2019-11-20 15:48] LABS: Alanine Aminotransferase 17 units/L (7-56); Albumin 4.4 g/dL (3.9-5); BUN/Creatinine Ratio 23; Blood Urea Nitrogen 9 mg/dL (7-17); Calcium 9.5 mg/dL (8.4-10.2); Hemolysis Index 9
--- NOTE | 2019-11-20 16:16 | XRay Report ---
XR shoulder 2+V LT INDICATION / CLINICAL INFORMATION: fall after ETOH use, left sided shoulder pain. COMPARISON: None available. FINDINGS: BONES/JOINT(S): No acute fracture or subluxation. No significant degenerative changes. SOFT TISSUES: There is calcific tendinitis in the infraspinatus tendon. ADDITIONAL FINDINGS: None. Signer Name: Jose Elias Bee MD Signed: 11/20/2019 4:12 PM Workstation Name: [id number]
[2019-11-20] MEDS ORDERED: HYDROmorphone 1 MG/1 ML INJ IV ONE (19:46)
--- NOTE | 2019-11-20 19:47 | Emergency Department Report ---
ED Fall HPI - General Chief Complaint: Fall Stated Complaint: FACE PAIN Time Seen by Provider: 11/20/19 14:19 Source: patient Mode of arrival: Wheelchair Limitations: No Limitations - History of Present Illness Initial Comments: Patient is a 49-year-old female that presents emergency room with complaints of a fall. Patient states she is having pain in her face, headache, neck and left shoulder. Patient states that the pain is a 10 out of 10. Patient states the pain is worse with movement and better with rest. Patient states that she lost consciousness. Patient states she was getting out of bed and slipped and landed on her face. Patient states she had a brief loss of consciousness and woke up pretty quickly. Patient states nobody witnessed this. Patient states she has rug burn on her face due to hitting the carpet. Patient states that she was feeling fine before she tripped and fell except for chronic pain. Patient states though that her fibromyalgia and chronic back pain have been acting up and she took 3 shots of vodka today in order to help her pain. Patient denies chest pain or shortness of breath. Patient denies fever and chills. Patient denies cough. Patient denies dizziness. MD Complaint: fall -: Sudden - Related Data Home Medications Medication Instructions Recorded Confirmed Last Taken Sertraline [Zoloft] 100 mg PO DAILY 04/17/16 12/09/18 Unknown Oxycodone HCl [roxiCODONE] 30 mg PO Q4-6H PRN 12/09/18 08/20/19 12/09/18 traZODone [Desyrel] 1 - 2 tab PO QHS 12/09/18 08/20/19 Unknown Metoprolol [Lopressor TAB] 25 mg PO DAILY 12/10/18 08/20/19 Unknown Baclofen [Lioresal] 1 tab PO QID PRN 08/20/19 08/20/19 Unknown buPROPion XL [Wellbutrin XL] 150 mg PO QAM 08/20/19 08/20/19 Unknown Previous Rx's Medication Instructions Recorded Last Taken Type clonazePAM [Clonazepam] 0.5 mg PO BID #14 tablet 01/13/18 Unknown Rx Budesonide/Formoterol Fumarate 2 puff IH BID #1 hfa.aer.ad 12/12/18 Unknown Rx [Symbicort 160-4.5 Mcg Inhaler] cefUROXime [Ceftin] 2 tab PO Q12H #20 tablet 08/20/19 Unknown Rx Albuterol Mdi (or & Nicu Only) 2 puff IH QID PRN #1 inhalation 10/07/19 Unknown Rx [ProAir HFA Inhaler] Metaxalone [Skelaxin] 800 mg PO TID PRN #12 tablet 11/20/19 Unknown Rx Allergies Allergy/AdvReac Type Severity Reaction Status Date / Time aripiprazole [From Abilify] AdvReac Unknown Verified 11/28/18 19:21 pregabalin [From Lyrica] AdvReac Hives Verified 11/28/18 19:21 ED Review of Systems ROS: Stated complaint: FACE PAIN Other details as noted in HPI Constitutional: denies: chills, fever Eyes: denies: eye pain, eye discharge, vision change ENT: denies: ear pain, throat pain Respiratory: denies: cough, shortness of breath, wheezing Cardiovascular: denies: chest pain, palpitations Endocrine: no symptoms reported Gastrointestinal: denies: abdominal pain, nausea, diarrhea Genitourinary: denies: urgency, dysuria, discharge Musculoskeletal: denies: back pain, joint swelling, arthralgia Skin: denies: rash, lesions Neurological: as per HPI, headache. denies: weakness, paresthesias Psychiatric: denies: anxiety, depression Hematological/Lymphatic: denies: easy bleeding, easy bruising ED Past Medical Hx - Past Medical History Previous Medical History?: Yes Hx Hypertension: Yes Hx Arthritis: Yes Hx Psychiatric Treatment: Yes (Anxiety, depression) Hx Asthma: Yes Hx COPD: Yes Additional medical history: Fibromyalgia. MRSA - Surgical History Past Surgical History?: Yes Hx Appendectomy: Yes Hx Breast Surgery: Yes (duct from left breast removed) Additional Surgical History: hysterectomy. bilateral carpal tunnel release. spinal fusion - Social History Smoking Status: Never Smoker Substance Use Type: Alcohol - Medications Home Medications: Home Medications Medication Instructions Recorded Confirmed Last Taken Type Sertraline [Zoloft] 100 mg PO DAILY 04/17/16 12/09/18 Unknown History clonazePAM [Clonazepam] 0.5 mg PO BID #14 tablet 01/13/18 08/20/19 Unknown Rx Oxycodone HCl [roxiCODONE] 30 mg PO Q4-6H PRN 07/08/20/19 12/09/18 History traZODone [Desyrel] 1 - 2 tab PO QHS 12/09/18 08/20/19 Unknown History Metoprolol [Lopressor TAB] 25 mg PO DAILY 12/10/18 08/20/19 Unknown History Budesonide/Formoterol Fumarate 2 puff IH BID #1 hfa.aer.ad 12/12/18 08/20/19 Unknown Rx [Symbicort 160-4.5 Mcg Inhaler] Baclofen [Lioresal] 1 tab PO QID PRN 08/20/19 08/20/19 Unknown History buPROPion XL [Wellbutrin XL] 150 mg PO QAM 08/20/19 08/20/19 Unknown History cefUROXime [Ceftin] 2 tab PO Q12H #20 tablet 08/20/19 Unknown Rx Albuterol Mdi (or & Nicu Only) 2 puff IH QID PRN #1 inhalation 10/07/19 Unknown Rx [ProAir HFA Inhaler] Metaxalone [Skelaxin] 800 mg PO TID PRN #12 tablet 11/20/19 Unknown Rx ED Physical Exam - General Limitations: No Limitations General appearance: alert, in no apparent distress - Head Head exam: Present: atraumatic, normocephalic - Eye Eye exam: Present: normal appearance, PERRL, other (2 abrasions noted on face.) Pupils: Present: normal accommodation - ENT ENT exam: Present: mucous membranes moist - Neck Neck exam: Present: normal inspection, tenderness, full ROM - Respiratory Respiratory exam: Present: normal lung sounds bilaterally. Absent: respiratory distress, wheezes, rales - Cardiovascular Cardiovascular Exam: Present: regular rate, normal rhythm. Absent: systolic murmur, diastolic murmur, rubs, gallop - GI/Abdominal GI/Abdominal exam: Present: soft, normal bowel sounds. Absent: distended, tenderness, guarding - Rectal Rectal exam: Present: deferred - Extremities Exam Extremities exam: Present: normal inspection, full ROM, normal capillary refill. Absent: tenderness, calf tenderness - Back Exam Back exam: Present: normal inspection - Neurological Exam Neurological exam: Present: alert, oriented X3 - Psychiatric Psychiatric exam: Present: normal affect, normal mood - Skin Skin exam: Present: warm, dry, intact, normal color. Absent: rash ED Course Vital Signs 11/20/19 11/20/19 11/20/19 13:25 19:35 19:45 Temperature 97.9 F Pulse Rate 109 H 119 H Respiratory 18 15 Rate Blood Pressure 136/87 127/69 127/69 O2 Sat by Pulse 100 90 100 Oximetry 11/20/19 11/20/19 20:01 20:15 Temperature Pulse Rate 115 H 118 H Respiratory 16 22 Rate Blood Pressure 127/69 127/69 O2 Sat by Pulse 98 98 Oximetry - Reevaluation(s) Reevaluation #1: I discussed all results and clinical findings with patient. I discussed plan of care with patient. Patient agrees with plan of care. Patient is stable for discharge. Patient will be discharged home. Patient given discharge instructions. Patient voiced understanding of discharge instructions. 11/20/19 21:17 ED Medical Decision Making - Lab Data Result diagrams: 11/20/19 15:15 11/20/19 15:15 - Radiology Data Radiology results: report reviewed CT FACE HISTORY: Trauma COMPARISON: None. TECHNIQUE: Axial images of the face were obtained. Coronal and sagittal reformats were generated.All CT scans at this location are performed using CT dose reduction for ALARA by means of automated exposure control CONTRAST: None. FINDINGS: Facial bones: No fracture or other significant abnormality. Paranasal sinuses: Clear. Right maxillary sinus mildly hypoplastic; frontal sinus did not pneumatize Orbits: No significant abnormality. Visualized images of the intracranial space: No significant abnormality. Additional findings: None. IMPRESSION: 1. No significant abnormality. XR shoulder 2+V LT INDICATION / CLINICAL INFORMATION: fall after ETOH use, left sided shoulder pain. COMPARISON: None available. FINDINGS: BONES/JOINT(S): No acute fracture or subluxation. No significant degenerative changes. SOFT TISSUES: There is calcific tendinitis in the infraspinatus tendon. ADDITIONAL FINDINGS: None CT HEAD WITHOUT CONTRAST INDICATION / CLINICAL INFORMATION: Trauma. Patient fell sustaining head injury. TECHNIQUE: All CT scans at this location are performed using CT dose reduction for ALARA by means of automated exposure control. COMPARISON: None available. FINDINGS: HEMORRHAGE: No evidence of intracranial hemorrhage or extra-axial fluid collection. EXTRA-AXIAL SPACES: Cortical sulci, sylvian fissures and basilar cisterns have an unremarkable appearance. VENTRICULAR SYSTEM: The ventricular system is of normal size and configuration. CEREBRAL PARENCHYMA: No areas of abnormal brain parenchymal attenuation are identified. There is no indication of recent infarction. MIDLINE SHIFT OR HERNIATION: There is no mass effect. CEREBELLUM / BRAINSTEM: Brainstem and cerebellum have an unremarkable appearance. MIDLINE STRUCTURES:No abnormalities of the pineal region are identified. Sella turcica is dilated and filled with CSF attenuation material consistent with "empty sella turcica". INTRACRANIAL VESSELS:No abnormalities are identified on this noncontrast head CT. ORBITS: visualized portions of the orbits have an unremarkable appearance. SOFT TISSUES of HEAD: No significant abnormality. CALVARIUM: Evaluation of bone windows reveals no abnormalities. PARANASAL SINUSES / MASTOID AIR CELLS: Paranasal sinuses are free from inflammatory mucosal disease. Mastoid air cells are normally pneumatized. IMPRESSION: 1. No significant abnormality on head CT without contrast. CT CERVICAL SPINE WITHOUT CONTRAST INDICATION / CLINICAL INFORMATION: Trauma. Patient fell sustaining neck injury. Neck pain.. TECHNIQUE: Axial CT images were obtained through the cervical spine. Sagittal and coronal reformatted images were produced. All CT scans at this location are performed using CT dose reduction for ALARA by means of automated exposure control. COMPARISON: None available. FINDINGS: ALIGNMENT: Loss of the normal cervical lordosis is noted. No additional abnormalities are identified. There is no indication of traumatic subluxation. VERTEBRAE: No indication of fracture. DISC SPACES: Disc height is decreased at the C5-6 level. INDIVIDUAL LEVEL ANALYSIS: C2-3:No abnormality. C3-4:No abnormality. C4-5:No abnormality. C5-6: Loss of disc height is noted. Anterior osteophyte formation is observed. Reactive changes secondary to degenerative disc disease are seen at the adjacent endplates. Mild uncovertebral arthropathy is noted bilaterally. There is no indication of central canal stenosis or neuroforaminal narrowing. C6-7:No abnormality. C7-T1:No abnormality. CRANIOCERVICAL JUNCTION:No significant abnormality. SPINAL CANAL: Central spinal canal is adequately maintained throughout. PARASPINAL SOFT TISSUES: No significant abnormality. ADDITIONAL FINDINGS: None. LUNG APICES: No significant abnormality of visualized lungs. IMPRESSION: 1. Degenerative changes at C5-6 without indication of central canal stenosis or neuroforaminal narrowing. 2. No indication of fracture or traumatic subluxation. - Medical Decision Making Patient is a 49-year-old female who presents emergency room with complaints of fall, loss of consciousness, neck pain, headache, facial pain, facial abrasion, left shoulder pain. Patient had a CT of the head which was negative for acute findings. Patient had a CT of the neck which is negative for acute findings. Patient had a left shoulder x-ray was negative for fracture and acute findings. Patient had a facial bone CT which was negative for acute findings. Patient's labs are unremarkable except for elevated blood alcohol. Patient had a repeat blood alcohol which was below the legal limit and patient stable for discharge. Patient was monitored until she was clinically and legally sober. Patient given fluids and pain medication. Patient given discharge instructions. - Differential Diagnosis Fall, concussion, ashley, facial pain, facial trauma, sprain, strain, fracture Critical care attestation.: If time is entered above; I have spent that time in minutes in the direct care of this critically ill patient, excluding procedure time. ED Disposition Clinical Impression: Facial pain, acute, Neck pain Concussion Qualifiers: Encounter type: initial encounter Loss of consciousness presence/duration: with LOC of 30 min or less Qualified Code(s): S06.0X1A - Concussion with loss of consciousness of 30 minutes or less, initial encounter Head injury Qualifiers: Encounter type: initial encounter Qualified Code(s): S09.90XA - Unspecified injury of head, initial encounter Left shoulder pain Qualifiers: Chronicity: acute Qualified Code(s): M25.512 - Pain in left shoulder Facial contusion Qualifiers: Encounter type: initial encounter Qualified Code(s): S00.83XA - Contusion of other part of head, initial encounter Facial abrasion Qualifiers: Encounter type: initial encounter Qualified Code(s): S00.81XA - Abrasion of other part of head, initial encounter Cervical sprain Qualifiers: Encounter type: initial encounter Qualified Code(s): S13.9XXA - Sprain of joints and ligaments of unspecified parts of neck, initial encounter Shoulder contusion Qualifiers: Encounter type: initial encounter Laterality: left Qualified Code(s): S40.012A - Contusion of left shoulder, initial encounter Acute alcohol intoxication Qualifiers: Complication of substance-induced condition: uncomplicated Qualified Code(s): F10.920 - Alcohol use, unspecified with intoxication, uncomplicated Headache Qualifiers: Headache type: post-traumatic Headache chronicity pattern: acute headache Intractability: not intractable Qualified Code(s): G44.319 - Acute post- traumatic headache, not intractable Disposition: DC-01 TO HOME OR SELFCARE Is pt being admited?: No Does the pt Need Aspirin: No Condition: Stable Instructions: Contusion in Adults (ED), Acute Headache (ED), Minor Head Injury (ED), Concussion (ED), At-Risk Alcohol Use (ED), Alcohol Intoxication (ED), Fall Prevention (ED), Chronic Pain (ED), Cervical Spine Strain (ED), Cervical Sprain (ED), Abrasion (ED) Additional Instructions: Patient to follow-up with primary care in 2 to 3 days. Patient to follow-up with neurology in 2 to 3 days. Patient to follow-up with orthopedist in 2 to 3 days. Patient to rest. Patient to increase water. Patient to avoid strenuous exercise or heavy lifting until cleared by orthopedist and neurology. Patient to follow concussion precautions and instructions. Patient to take Tylenol or ibuprofen as needed for pain. Patient to return to the ER if condition worsens, changes or new symptoms arise. Prescriptions: Metaxalone [Skelaxin] 800 mg PO TID PRN #12 tablet PRN Reason: Spasms Referrals: PRIMARY MD KIMMY [Primary Care Provider] - 2-3 Days GENEVIEVE BARBA MD [Staff Physician] - 2-3 Days JAYDEN RUIZ MD [Staff Physician] - 2-3 Days Time of Disposition: 21:28
--- NOTE | 2019-11-20 20:29 | Cat Scan Report ---
CT FACE HISTORY: Trauma COMPARISON: None. TECHNIQUE: Axial images of the face were obtained. Coronal and sagittal reformats were generated.All CT scans at this location are performed using CT dose reduction for ALARA by means of automated expo sure control CONTRAST: None. FINDINGS: Facial bones: No fracture or other significant abnormality. Paranasal sinuses: Clear. Right maxillary sinus mildly hypoplastic; frontal sinus did not pneumatize Orbits: No significant abnormality. Visualized images of the intracranial space: No significant abnormality. Additional findings: None. IMPRESSION: 1. No significant abnormality. Signer Name: Yudi Thapa MD Signed: 11/20/2019 8:25 PM Workstation Name: [id number]
[2019-11-20] MEDS ORDERED: ACETAMINOPHEN W/CODEINE 300-30 MG TAB PO ONE (21:52)
[2019-11-20 21:53] VITALS: BP 122/83
== END 2019-11-20 22:28 | disposition home or self-care (01) ==
LOC: ED 13:22
DX: S06.0X9A Concussion with loss of consciousness of unspecified duration, initial encounter (principal); S13.9XXA Sprain of joints and ligaments of unspecified parts of neck, initial encounter; S40.012A Contusion of left shoulder, initial encounter; S00.83XA Contusion of other part of head, initial encounter; F10.129 Alcohol abuse with intoxication, unspecified; I10 Essential (primary) hypertension; M19.91 Primary osteoarthritis, unspecified site; J44.9 Chronic obstructive pulmonary disease, unspecified; F41.9 Anxiety disorder, unspecified; Z90.49 Acquired absence of other specified parts of digestive tract; Z98.890 Other specified postprocedural states; Z79.899 Other long term (current) drug therapy; Z88.8 Allergy status to other drugs, medicaments and biological substances; W01.0XXA Fall on same level from slipping, tripping and stumbling without subsequent striking against object, initial encounter; Y93.89 Activity, other specified; Y92.89 Other specified places as the place of occurrence of the external cause; Y99.8 Other external cause status
CPT/HCPCS: 36415; 70450; 70486; 72125; 73030; 80053; 85025; 85610; 85730; 96374; 99284; J1170; 80320; G0480

== ENCOUNTER 2021-03-05 02:36 | Emergency (ER) | payer MEDICARE ==
[2021-03-05 03:18] LABS: Basophils % (Auto) 0.3 % (0.0-1.8); Eosinophils # (Auto) 0.2 K/mm3 (0.0-0.4); Eosinophils % (Auto) 1.8 % (0.0-4.3); Hematocrit 37.4 % (30.3-42.9); Hemoglobin 12.3 gm/dl (10.1-14.3); Lymphocytes # (Auto) 2.3 K/mm3 (1.2-5.4); Lymphocytes % (Auto) 23.6 % (13.4-35.0); Mean Corpuscular HGB Conc 33 % (30-34); Mean Corpuscular Volume 86 fl (79-97); Monocytes % (Auto) 10.3 % (0.0-7.3); Platelet Count 299 K/mm3 (140-440); Red Blood Count 4.38 M/mm3 (3.65-5.03); Red Cell Distribution Width 15.2 % (13.2-15.2)
[2021-03-05 03:21] LABS: Bacteria,Urine 1+ /HPF (Negative); Bilirubin,Urine NEG (Negative); Blood,Urine SM (Negative); Color,Urine Yellow (Yellow); Mucus,Urine FEW /HPF; Protein,Urine <15 mg/dL mg/dL (Negative); Urobilinogen,Urine < 2.0 mg/dL (<2.0)
[2021-03-05 03:23] LABS: Amphetamine Screen,Urine PRESUMPTIVE NEGATIVE; Benzodiazepines Screen,Urine PRESUMPTIVE NEGATIVE; Cannabinoid Screen,Urine PRESUMPTIVE NEGATIVE; Cocaine Screen,Urine PRESUMPTIVE NEGATIVE; Methadone Screen,Urine PRESUMPTIVE NEGATIVE; Opiate Screen,Urine PRESUMPTIVE POSITIVE
--- NOTE | 2021-03-05 03:31 | Emergency Department Report ---
<ANDRES TALBERT - Last Filed: 03/05/21 11:23> History of Present Illness - General Chief Complaint: Overdose Stated Complaint: POSS OD Time Seen by Provider: 03/05/21 02:47 - Related Data Home Medications Medication Instructions Recorded Confirmed Last Taken Sertraline [Zoloft] 100 mg PO DAILY 04/17/16 11/20/19 Unknown traZODone [Desyrel] 1 - 2 tab PO QHS 12/09/18 11/20/19 Unknown Albuterol Mdi (or & Nicu Only) 11/20/19 Unknown [ProAir HFA Inhaler] Amlodipine Besylate 11/20/19 Unknown Cholecalciferol Vit D3 [Vitamin D3 11/20/19 Unknown 1,000 UNIT TAB] Prazosin HCl 5 mg 11/20/19 Unknown Symbicort 160-4.5 Mcg Inhaler 11/20/19 Unknown Tiotropium [Spiriva] 11/20/19 Unknown Previous Rx's Medication Instructions Recorded Last Taken Type Azithromycin [Zithromax Z-ZANE] 250 mg PO DAILY #6 tab 11/26/19 Unknown Rx Allergies Allergy/AdvReac Type Severity Reaction Status Date / Time aripiprazole [From Abilify] AdvReac Unknown Verified 03/05/21 02:43 pregabalin [From Lyrica] AdvReac Hives Verified 03/05/21 02:43 ED Past Medical Hx - Medications Home Medications: Home Medications Medication Instructions Recorded Confirmed Last Taken Type Sertraline [Zoloft] 100 mg PO DAILY 04/17/16 11/20/19 Unknown History traZODone [Desyrel] 1 - 2 tab PO QHS 12/09/18 11/20/19 Unknown History Albuterol Mdi (or & Nicu Only) 11/20/19 Unknown History [ProAir HFA Inhaler] Amlodipine Besylate 11/20/19 Unknown History Cholecalciferol Vit D3 [Vitamin D3 11/20/19 Unknown History 1,000 UNIT TAB] Prazosin HCl 5 mg 11/20/19 Unknown History Symbicort 160-4.5 Mcg Inhaler 11/20/19 Unknown History Tiotropium [Spiriva] 11/20/19 Unknown History Azithromycin [Zithromax Z-ZANE] 250 mg PO DAILY #6 tab 11/26/19 Unknown Rx ED Course - Reevaluation(s) Reevaluation #1: 03/05/21 11:23 Patient signed out to me by the overnight physician. EKGs are unchanged x2. Laboratory studies, vital signs are reviewed and appreciated. Potassium has been repleted. Patient is on Macrobid. Patient resting comfortably on quality assurance monitor chassis, and in no acute distress. At this time, this patient does not appear to have an immediate medical c ontraindication to psychiatric admission, evaluation, consultation and placement. This patient may be moved back to our psychiatric holding area at this time ED Medical Decision Making - Lab Data Result diagrams: 03/05/21 03:08 03/05/21 03:07 ED Disposition Clinical Impression: Anticholinergic drug overdose, Anxiety, Depression, Homeless, UTI (urinary tract infection), Chronic pain, Bipolar disorder, Fibromyalgia, Medical clearance for psychiatric admission Disposition: [address] [place] [address] Is pt being admited?: No Does the pt Need Aspirin: No Condition: Stable Referrals: PRIMARY CARE,MD [Primary Care Provider] - 3-5 Days <ROBINSON NGUYEN - Last Filed: 03/05/21 21:28> History of Present Illness - General Source: patient Mode of arrival: Stretcher Limitations: No Limitations - History of Present Illness Initial Comments: 50-year-old female with a past medical history of depression, anxiety, asthma, COPD, hypertension, fibromyalgia, and chronic back pain presented currently in pain management) presents to the hospital complaints of excessive Benadryl ingestion. Between 7:30 PM and 11:30 PM patient states she took approximately 19-20 Benadryl 25 mg and attempt to go to sleep to stop her mind from racing. For last 1 to 2 weeks patient has had increased anxiety. She is currently homeless and living in hotels. She is anxious about her current living situa tion. She states that her mind is constantly racing and she is nervous. She has been picking at her fingers in her sleep. She has been having episodes of feeling frozen like she cannot move. Patient is feeling this way despite compliance with the Cymbalta. Patient takes morphine ER 30 mg 3 times daily and oxycodone 15 mg 4 times daily for back chronic pain as prescribed by her pain specialist. Patient denies suicidal ideation but is feeling overwhelmed by her current living situation and mental health issues. She complains of feeling hot ED Review of Systems ROS: Stated complaint: POSS OD Other details as noted in HPI Comment: All other systems reviewed and negative ED Past Medical Hx - Past Medical History Hx Hypertension: Yes Hx Arthritis: Yes Hx Psychiatric Treatment: Yes (Anxiety, depression) Hx Asthma: Yes Hx COPD: Yes Additional medical history: Fibromyalgia. MRSA - Surgical History Hx Appendectomy: Yes Hx Breast Surgery: Yes (duct from left breast removed) Additional Surgical History: hysterectomy. bilateral carpal tunnel release. spinal fusion - Social History Smoking Status: Current Every Day Smoker Substance Use Type: Alcohol ED Physical Exam - General Limitations: No Limitations - Other Other exam information: General: No acute distress Head: Atraumatic Eyes: normal appearance ENT: Moist mucous membranes Neck: Normal appearance, no midline tenderness Chest: Clear to auscultation bilaterally CV: Tachycardic regular rhythm Abdomen: Soft, normal bowel sounds, mild epigastric tenderness, nondistended, no rebound or guarding Back: Normal inspection Extremity: Normal inspection, full range of motion Neuro: Alert O x 3, no facial asymmetry, speech clear, no gross motor sensory deficit Psych: Depressed affect tearful Skin: No rash ED Course Vital Signs 03/05/21 03/05/21 03/05/21 02:42 03:00 03:15 Temperature 99.2 F Pulse Rate 109 H 106 H Respiratory 16 20 Rate Blood Pressure 139/81 136/79 Blood Pressure 109/58 [Left] O2 Sat by Pulse 99 99 96 Oximetry 03/05/21 03/05/21 03/05/21 03:31 03:45 04:01 Temperature Pulse Rate Respiratory Rate Blood Pressure 139/81 110/58 147/66 Blood Pressure [Left] O2 Sat by Pulse 96 96 95 Oximetry 03/05/21 03/05/21 03/05/21 04:15 04:31 04:45 Temperature Pulse Rate Respiratory Rate Blood Pressure 118/58 117/54 127/64 Blood Pressure [Left] O2 Sat by Pulse 97 97 97 Oximetry 03/05/21 20:25 Temperature 98.5 F Pulse Rate 83 Respiratory 16 Rate Blood Pressure Blood Pressure 134/85 [Left] O2 Sat by Pulse 99 Oximetry - Consultations Consultation #1: 03/05/21 03:27 Posion control recommendations as per RN note Called the [facility] and here are the recommendations: 1. It causes COLLET DRILLER depression and anti cholinergic effect so watch out for: -Decreased bowel sound, urinary retention, agitation, confusion, hallucinations, tachycardia, seizure, hypotension, QRS widening, ventricular dysrrhthmias. 2. Request for CMP, CBC, Tylenol, Salicylates, alcohol level 3. For agitation use Benzo no anti psychotic ( haldol, Geodon) 4. do EKG and repeat after 2 hours. 5. For seizure use Benzo, phenobarbital, propofol no Phenytoin 6. Observe patient for 6-8 hours. ED Medical Decision Making - Lab Data Result diagrams: 03/05/21 03:08 03/05/21 03:07 - EKG Data -: EKG Interpreted by Me EKG shows normal: sinus rhythm, intervals (qtc 136), QRS complexes (qrsd 79), ST-T waves (no stemi) Rate: tachycardia (103) - EKG Data 03/05/21 05:08 Repeat EKG and 4:40 AM similar to previous ekg obtained earlier today without acute findings. No signs of ischemia. QTc 422. QRS duration 42. - Medical Decision Making 50-year-old female with excessive ingestion of Benadryl. Patient does endorse worsening psychiatric symptoms but denies roselyn suicidal ideation. [id number] signed while pending mental health evaluation. Patient will require 6 to 8 hours observation prior to medical clearance. At time of my initial evaluation patien t exhibiting mild tachycardia and a hot feeling without increased temperature. Patient will be signed out to oncoming provider potential medical clearance/observation time should and at 8:50am to 10:50 AM. Patient placed on Macrobid for UTI. Critical Care Time: No Critical care attestation.: If time is entered above; I have spent that time in minutes in the direct care of this critically ill patient, excluding procedure time.
[2021-03-05 03:38] LABS: Alanine Aminotransferase 14 units/L (7-56); Albumin 4.2 g/dL (3.9-5); Blood Urea Nitrogen 12 mg/dL (7-17); Calcium 9.2 mg/dL (8.4-10.2); Hemolysis Index 5
[2021-03-05 03:40] LABS: BUN/Creatinine Ratio 17
[2021-03-05] MEDS ORDERED: POTASSIUM CHLORIDE ER 20 MEQ TAB PO ONE (04:05)
[2021-03-05] MEDS ORDERED: NITROFURANTOIN MONOHYD/M-CRYST 100 MG CAP PO ONE (04:05)
[2021-03-05 20:26] VITALS: BP 134/85
[2021-03-05] MEDS ORDERED: NITROFURANTOIN MONOHYD/M-CRYST 100 MG CAP PO SCH (22:00)
--- NOTE | 2021-03-06 09:43 | Electrocardiograph Report ---
[facility] Test Date: 2021-03-05 Test Time: 04:48:25 Pat Name: VERONICA CONRAD Department: Room: Gender: F Label Paster: KIMBERLI : 1970 Requested By: ROBINSON NGUYEN Order Number: [id number] Reading MD: Gorge Hensley Measurements Intervals [place] Rate: 87 P: 70 WV: 153 QRS: 60 QRSD: 72 T: 57 QT: 350 QTc: 422 Interpretive Statements Sinus rhythm Compared to ECG 03/05/2021 03:01:11 Sinus tachycardia no longer present Electronically Signed On 03-06-2021 9:43:31 EDT by Gorge Hensley
--- NOTE | 2021-03-06 09:43 | Electrocardiograph Report ---
[facility] Test Date: 2021-03-05 Test Time: 03:01:11 Pat Name: VERONICA CONRAD Department: ED Room: Gender: F Sound Person: : 1970 Requested By: ROBINSON NGUYEN Order Number: [id number] Reading MD: Gorge Hensley Measurements Intervals [place] Rate: 103 P: 43 [place]: 148 QRS: 2 QRSD: 79 T: 35 QT: 333 QTc: 436 Interpretive Statements Sinus tachycardia No previous ECG available for comparison Electronically Signed On 03-06-2021 9:43:05 EDT by Gorge Hensley
== END 2021-03-06 00:33 ==
LOC: ED 02:36
DX: T44.3X1A Poisoning by other parasympatholytics [anticholinergics and antimuscarinics] and spasmolytics, accidental (unintentional), initial encounter (principal); F41.9 Anxiety disorder, unspecified; Z59.00 Homelessness unspecified; N39.0 Urinary tract infection, site not specified; G89.29 Other chronic pain; F31.9 Bipolar disorder, unspecified; M79.7 Fibromyalgia; I10 Essential (primary) hypertension; M19.90 Unspecified osteoarthritis, unspecified site; J44.9 Chronic obstructive pulmonary disease, unspecified; F17.200 Nicotine dependence, unspecified, uncomplicated; Z72.89 Other problems related to lifestyle; Z79.899 Other long term (current) drug therapy; Z20.822 Contact with and (suspected) exposure to COVID-19; Y92.89 Other specified places as the place of occurrence of the external cause
CPT/HCPCS: 36415; 80053; 80307; 81001; 83735; 85025; 87086; 93005; 99285; U0003; 80320; G0480

== ENCOUNTER 2021-12-18 23:53 | Emergency (ER) | payer MEDICARE ==
[2021-12-19 03:10] LABS: Mucus,Urine FEW /HPF
[2021-12-19 03:12] LABS: Basophils % (Auto) 0.3 % (0.0-1.8); Eosinophils # (Auto) 0.3 K/mm3 (0.0-0.4); Eosinophils % (Auto) 2.9 % (0.0-4.3); Hematocrit 38.6 % (30.3-42.9); Hemoglobin 12.7 gm/dl (10.1-14.3); Lymphocytes # (Auto) 2.2 K/mm3 (1.2-5.4); Lymphocytes % (Auto) 20.9 % (13.4-35.0); Mean Corpuscular HGB Conc 33 % (30-34); Mean Corpuscular Volume 87 fl (79-97); Monocytes # (Auto) 0.9 K/mm3 (0.0-0.8); Monocytes % (Auto) 8.6 % (0.0-7.3); Platelet Count 316 K/mm3 (140-440); Red Blood Count 4.45 M/mm3 (3.65-5.03); Red Cell Distribution Width 13.4 % (13.2-15.2)
[2021-12-19 03:20] LABS: Bilirubin,Urine Negative (Negative); Blood,Urine 1+ (Negative); Color,Urine Yellow (Yellow)
[2021-12-19 03:22] LABS: Blood Urea Nitrogen 12 mg/dL (7-17); Calcium 9.2 mg/dL (8.4-10.2); Hemolysis Index 5
[2021-12-19 03:23] LABS: BUN/Creatinine Ratio 17
[2021-12-19] MEDS ORDERED: KETOROLAC 10 MG TAB PO ONE (09:45)
[2021-12-19] MEDS ORDERED: CYCLOBENZAPRINE 10 MG TAB PO ONE (09:45)
[2021-12-19] MEDS ORDERED: predniSONE 20 MG TAB PO ONE (09:45)
--- NOTE | 2021-12-19 11:25 | Emergency Department Report ---
ED Abdominal Pain HPI - General Chief Complaint: Abdominal Pain Stated Complaint: HEART FLUTTERING Time Seen by Provider: 12/19/21 09:33 Source: patient Mode of arrival: Ambulatory Limitations: No Limitations - History of Present Illness Initial Comments: 51 yo black female with a pmh of pre diabetes, chronic back pain, and depression presents to ed for evaluation of few day history of worsening lower back pain and lower abdominal pain. She denies fever, dysuria, n/v/d, and vaginal discharge. She states that today, she started to feel like her heart was fluttering this am. She denies cp, sob, dizziness, and diaphoresis. MD Complaint: abdominal pain -: Gradual, days(s) (2-3) Location: LLQ, RLQ Radiation: none Migration to: no migration Severity: moderate Severity scale (0 -10): 7 Quality: aching Consistency: constant Associated Symptoms: denies: nausea, vomiting, diarrhea, fever, chills, dysuria, hematemesis, hematochezia, melena, hematuria, anorexia, syncope - Related Data Home Medications Medication Instructions Recorded Confirmed Last Taken Sertraline [Zoloft] 100 mg PO DAILY 04/17/16 11/20/19 Unknown traZODone [Desyrel] 1 - 2 tab PO QHS 12/09/18 11/20/19 Unknown Albuterol Mdi (or & Nicu Only) 11/20/19 Unknown [ProAir HFA Inhaler] Amlodipine Besylate 11/20/19 Unknown Cholecalciferol Vit D3 [Vitamin D3 11/20/19 Unknown 1,000 UNIT TAB] Prazosin HCl 5 mg 11/20/19 Unknown Symbicort 160-4.5 Mcg Inhaler 11/20/19 Unknown Tiotropium [Spiriva] 11/20/19 Unknown Previous Rx's Medication Instructions Recorded Last Taken Type Azithromycin [Zithromax Z-ZANE] 250 mg PO DAILY #6 tab 11/26/19 Unknown Rx Cyclobenzaprine [Flexeril] 10 mg PO TID PRN #30 tab 12/19/21 Unknown Rx Allergies Allergy/AdvReac Type Severity Reaction Status Date / Time aripiprazole [From Abilify] AdvReac Unknown Verified 03/05/21 02:43 pregabalin [From Lyrica] AdvReac Hives Verified 03/05/21 02:43 ED Review of Systems ROS: Stated complaint: HEART FLUTTERING Other details as noted in HPI Comment: All other systems reviewed and negative Constitutional: denies: chills, fever Eyes: denies: eye discharge ENT: denies: congestion Respiratory: denies: shortness of breath Cardiovascular: denies: chest pain, palpitations Gastrointestinal: abdominal pain. denies: nausea, vomiting, diarrhea, hematemesis, melena, hematochezia Genitourinary: denies: urgency, dysuria, frequency, hematuria, discharge Musculoskeletal: back pain Skin: denies: rash, lesions Neurological: denies: headache, weakness ED Past Medical Hx - Past Medical History Hx Hypertension: Yes Hx Arthritis: Yes Hx Psychiatric Treatment: Yes (Anxiety, depression) Hx Asthma: Yes Hx COPD: Yes Additional medical history: Fibromyalgia. MRSA - Surgical History Hx Appendectomy: Yes Hx Breast Surgery: Yes (duct from left breast removed) Additional Surgical History: hysterectomy. bilateral carpal tunnel release. spinal fusion - Social History Smoking Status: Heavy Tobacco Smoker - Medications Home Medications: Home Medications Medication Instructions Recorded Confirmed Last Taken Type Sertraline [Zoloft] 100 mg PO DAILY 04/17/16 11/20/19 Unknown History traZODone [Desyrel] 1 - 2 tab PO QHS 12/09/18 11/20/19 Unknown History Albuterol Mdi (or & Nicu Only) 11/20/19 Unknown History [ProAir HFA Inhaler] Amlodipine Besylate 11/20/19 Unknown History Cholecalciferol Vit D3 [Vitamin D3 11/20/19 Unknown History 1,000 UNIT TAB] Prazosin HCl 5 mg 11/20/19 Unknown History Symbicort 160-4.5 Mcg Inhaler 11/20/19 Unknown History Tiotropium [Spiriva] 11/20/19 Unknown History Azithromycin [Zithromax Z-ZANE] 250 mg PO DAILY #6 tab 11/26/19 Unknown Rx Cyclobenzaprine [Flexeril] 10 mg PO TID PRN #30 tab 12/19/21 Unknown Rx ED Physical Exam - General Limitations: No Limitations General appearance: alert, in no apparent distress - Head Head exam: Absent: atraumatic, normocephalic - Eye Eye exam: Present: normal appearance. Absent: conjunctival injection - Neck Neck exam: Present: normal inspection, full ROM. Absent: tenderness, lymphadenopathy - Respiratory Respiratory exam: Present: normal lung sounds bilaterally. Absent: respiratory distress, wheezes, rales, rhonchi, stridor, chest wall tenderness - Cardiovascular Cardiovascular Exam: Present: regular rate, normal heart sounds - GI/Abdominal GI/Abdominal exam: Present: soft, normal bowel sounds. Absent: distended, tenderness, guarding, rebound, rigid - Extremities Exam Extremities exam: Present: normal inspection, full ROM, normal capillary refill. Absent: tenderness, pedal edema, joint swelling - Back Exam Back exam: Present: normal inspection, full ROM. Absent: tenderness, CVA tenderness (R), CVA tenderness (L), vertebral tenderness - Neurological Exam Neurological exam: Present: alert, oriented X3, CN II-XII intact, normal gait, reflexes normal. Absent: motor sensory deficit - Psychiatric Psychiatric exam: Present: normal affect, normal mood - Skin Skin exam: Present: warm, dry, intact, normal color ED Course Vital Signs 12/19/21 12/19/21 01:48 13:04 Temperature 98.2 F Pulse Rate 98 H 95 H Respiratory 16 18 Rate Blood Pressure 147/76 Blood Pressure 147/76 150/82 [Right] O2 Sat by Pulse 98 97 Oximetry ED Medical Decision Making - Lab Data Result diagrams: 12/19/21 02:33 12/19/21 02:33 - EKG Data Interpretation: no acute changes - Medical Decision Making 51 yo black female with a pmh of pre diabetes, chronic back pain, and depression presents to ed for evaluation of few day history of worsening lower back pain and lower abdominal pain. She denies fever, dysuria, n/v/d, and vaginal discharge. She states that today, she started to feel like her heart was fluttering this am. She denies cp, sob, dizziness, and diaphoresis. Physical exam unremarkable. Workup unremarkable. Pain improved after medications. [place] was advised to take medications as prescribed and follow up with pcp if no improvement or worsening symptoms. She is advised to return to ED as needed. She verbalized understanding of and agreement with plan of care. Critical care attestation.: If time is entered above; I have spent that time in minutes in the direct care of this critically ill patient, excluding procedure time. ED Disposition Clinical Impression: Back pain Qualifiers: Back pain location: low back pain Chronicity: acute Back pain laterality: bilateral Sciatica presence: without sciatica Qualified Code(s): M54.50 - Low back pain, unspecified Disposition: 01 HOME / SELF CARE / HOMELESS Is pt being admited?: No Does the pt Need Aspirin: No Condition: Stable Instructions: Acute Back Pain, Adult, Abdominal Pain (ED) Additional Instructions: Continue pain medicine at home as previously prescribed. Start Flexeril as prescribed follow-up with your primary care provider if no improvement or worsening symptoms. Return to the emergency department as needed. Prescriptions: Cyclobenzaprine [Flexeril] 10 mg PO TID PRN #30 tab PRN Reason: Muscle Spasm Referrals: LEN CADE MD [Primary Care Provider] - 3-5 Days Time of Disposition: 11:25
[2021-12-19 13:06] VITALS: BP 150/82
--- NOTE | 2021-12-20 10:58 | Electrocardiograph Report ---
[facility] Test Date: 2021-12-19 Test Time: 01:57:48 Pat Name: VERONICA CONRAD Department: Room: Gender: F [employer]: MARGUERITE : 1970 Requested By: ED DOC Order Number: [id number] Reading MD: Gordo Gregory Measurements Intervals [place] Rate: 87 P: 48 [place]: 135 QRS: 1 QRSD: 79 T: 27 QT: 351 QTc: 423 Interpretive Statements Sinus rhythm Compared to ECG 03/05/2021 04:48:25 No significant changes Electronically Signed On 12-20-2021 10:58:17 EDT by Gordo Gregory
== END 2021-12-19 13:05 | disposition home or self-care (01) ==
LOC: ED 12-19 09:42
DX: M54.50 Low back pain, unspecified (principal); Z88.8 Allergy status to other drugs, medicaments and biological substances; I10 Essential (primary) hypertension; J45.909 Unspecified asthma, uncomplicated; Z90.89 Acquired absence of other organs
CPT/HCPCS: 36415; 80048; 81001; 84484; 85025; 93005; 99283